=== PATIENT | female | born 1955 | race Caucasian/White ===

== ENCOUNTER 2016-12-14 17:21 | Emergency (ER) | payer MEDICARE ==
[~2016-12-14] VITALS: Ht 144.8 cm; Wt 54.5 kg
--- NOTE | 2016-12-14 17:25 | ED.REPORT ---
HPI-Trauma Minor / Fall Date of Service Dec 14, 2016 ED Provider: Curt Medellin MD The patient is a 61 year old female who was brought to the emergency department by EMS after she had a ground level fall prior to arrival. The patient was walking with her cane when her cane slipped out from under her and she fell forward hitting her face on the ground. She did not lose consciousness. She complains of a laceration to her lip and left shoulder pain. She is not on any blood thinners. She denies any other injuries or traumas. She denies fever, chills, abdominal pain, nausea, vomiting, diarrhea, chest pain or shortness of breath. Nursing Notes Stated Complaint: SHOULDER PAIN Nursing Notes Reviewed: Yes Allergies: Coded Allergies: [place] (Verified Allergy, Unknown, 12/14/16) Cephalosporins (Verified Allergy, Unknown, 12/14/16) Penicillins (Verified Allergy, Unknown, 12/14/16) aspirin (Verified Allergy, Unknown, 12/14/16) celery (Verified Allergy, Unknown, 12/14/16) clarithromycin (Verified Allergy, Unknown, 12/14/16) codeine (Verified Allergy, Unknown, 12/14/16) diphenhydramine HCl (Verified Allergy, Unknown, 12/14/16) General Time Seen by MD: 17:22 Chief Complaint Fall, Facial pain, Extremity pain Hx Obtained From: Patient, EMS Arrived By: Ambulance Onset Occurred: Just prior to arrival Symptom Duration: Since onset Caused by: Fall on ground Location: Face Shoulder left Quality: Painful Severity: Current: Moderate Severity: Maximum: Severe Recent Healthcare: No recent doctor visit, No recent hospitalization Similar Sx Previous: No Past Medical History Family History Noncontributory Smoking History Unknown if Ever Smoker Social History Other Social History: Good social support, , Local resident Ambulatory Status Independent Review of Systems Review of Systems Note: +lip laceration Constitutional: Denies: Chills, Fever Respiratory: Denies: Shortness of breath Musculoskeletal: Reports: Joint pain Neurologic: Denies: Change LOC, Headache, Syncope Complete sys rev & neg: except as marked. Cardiovascular: Denies: Chest pain GI: Denies: Abdominal pain, Diarrhea, Nausea, Vomiting Physical Exam Initial Vital Signs Vital Signs (First) Date Time Temp Pulse Resp B/P Pulse Ox O2 Delivery O2 Flow Rate FiO2 12/14/16 17:29 36.7 80 16 148/89 97 Room Air Initial VS: Reviewed Respiratory: Breath sounds normal, Clear to auscultation, No respiratory distress Cardiovascular: Regular rate & rhythm, Heart sounds normal, Intact distal pulses Abdomen / GI: Soft, Non-tender, No guarding, No rebound, No distention Skin: Warm, Dry, No cyanosis Neurologic: Alert, Oriented, Nonfocal Psychiatric: Mood/affect normal, Behavior normal, Normal thought content General/Constitutional: Awake, Alert, Cooperative Neck: Atraumatic, Supple, Full range of motion, No swelling, Non-tender, No midline vertebral tend Head / Eyes: Atraumatic, Normocephalic, PERRL, EOMI ENT: Airway patent There is dried blood about her upper lip. There is a superficial laceration about the internal aspect of her upper lip at midline that is about 5 mm. There is no evidence of dental trauma. Dentition is intact. Back: Atraumatic, Inspection NL, No midline vertebral tend, No paraspinal tenderness Upper Extremity / MS: Neurologic intact, Vascular intact Tenderness to her left anterior shoulder. No obvious deformity. No palpable bony abnormality. No evidence of dislocation. Sensation intact. Good radial pulses. Lower Extremity / Pelvis / MS: Neurologic intact, Vascular intact, Pelvis stable, Pelvis non-tender Female Genitourinary: Atraumatic Interpretation & Diagnostics X-Ray Interpretation Xray Interpretation: IMPRESSION: Moderate osteoarthritis a.c. joint, interstitial prominence over the lungs has been previously present and persists on the current study. Etiology is uncertain. Dictated by: Donaldo Moses M.D. on 12/14/2016 at 18:25 X-Ray Ordered: Shoulder left Interpretation / Wet Read by: Interpret - Radiologist Re-Eval/Medical Decision Med Decision/Clinical Course The patient is a 61 year old female who was brought to the emergency department by EMS after she had a ground level fall prior to arrival. The patient was walking with her cane when her cane slipped out from under her and she fell forward hitting her face on the ground. She did not lose consciousness. She complains of a laceration to her lip and left shoulder pain. She is not on any blood thinners. She denies any other injuries or traumas. She denies fever, chills, abdominal pain, nausea, vomiting, diarrhea, chest pain or shortness of breath. Here in the emergency department the patient is afebrile, hemodynamically stable and in no apparent distress. Full head to toe survey was performed and was notable for tenderness of the left shoulder without any deformity or swelling. She had good radial pulses in the affected extremity with full range of motion and intact sensation. Plain films of the left shoulder demonstrated no acute fractures or dislocation. Upon reassessment the patient had no signs of trauma to the chest, abdomen, pelvis, neck, face or head. I do not feel that any additional imaging studies or further workup is indicated. Patient reported that her pain was relatively mild and declined pain medication. She is provided with an ice pack. Thereafter, she was able to fully range her shoulder. I feel that she is appropriate for discharge. She will follow closely with her primary care doctor. She reports that she does not generally fall at home and was able to ambulate steadily and safely here in the ER. Prior to discharge follow-up and return precautions were reviewed in detail with the patient who verbalized understanding and agreement with the plan. The patient was discharged in stable condition. Source of Hx: Old records, EMS Re-Evaluation/Progress : Time of Eval: 18:57 Re-Evaluation/Progress Note: Discussed results, diagnosis, and plan for discharge. All questions were addressed. Counseled Regarding: Diagnosis, Lab results, Need for follow-up, When/why to return to ED Discharge & Departure Impression: Primary Impression: Fall from ground level Additional Impression: Left shoulder pain Chronicity: acute Qualified Code: M25.512 - Pain in left shoulder Disposition: Home Discharge Condition All VS Reviewed: Yes Condition: Stable Additional Instructions: dafne you for seeking care at the emergency room Our primary goal today in the ED was to evaluate you for any life-threatening conditions. Your evaluation was reassuring. We did not find any injuries of your shoulder. You should follow-up with your primary doctor in the next week. We recommend applying ice packs and taking Tylenol for your pain. You should return to the ED immediately if you develop worse pain, fevers, vomiting, cough, shortness of breath, chest pain, lightheadedness, weakness or any other concerning signs or symptoms. Thank you for letting us partake in your care today. Referrals: Vik Arellano MD (PCP) Scribe Attestation Portions of this note were transcribed by Ava Caldwell. I, Dr. Medellin personally performed the history, physical exam and medical decision-making; I reviewed and confirmed the accuracy of the information in the transcribed note. Signed by: Yadira Taylor, 12/14/2016 at 1905. copies to: Vik Arellano MD, Beck O MD Dec 14, 2016 17:25 Ava Caldwell Dec 14, 2016 17:28
[2016-12-14 17:29] VITALS: BP 148/89; PULSE 80; RESP 16; O2SAT 97
--- NOTE | 2016-12-14 18:28 | DRSVH ---
PROCEDURE: X-RAY LEFT SHOULDER, MINIMUM TWO VIEWS ([id number]) INDICATIONS: trauma TECHNIQUE: 3 views of the shoulder were acquired. COMPARISON: [facility], CR, XR CHEST 2VW, 06/01/2016, 15:50. FINDINGS: Bones: No fractures or dislocations. No suspicious bony lesions. Visualized ribs appear intact. M oderate osteoarthritis a.c. joint. Soft tissues: No suspicious soft tissue calcifications. Interstitial prominence again noted over th e lungs on the left, right chest is not included on this study.. IMPRESSION: Moderate osteoarthritis a.c. joint, interstitial prominence over the lungs has been prev iously present and persists on the current study. Etiology is uncertain. Dictated by: Donaldo Moses M.D. on 12/14/2016 at 18:25 Approved by: Donaldo Moses M.D. on 12/14/2016 at 18:26
[2016-12-14 18:55] VITALS: BP 124/78; PULSE 80; RESP 20; O2SAT 92
[2016-12-14 19:19] VITALS: BP 124/77; PULSE 74; RESP 16; O2SAT 97
== END 2016-12-14 19:20 | disposition home or self-care (01) ==
LOC: EDBD 17:21 → SED 17:21
DX: M25.512 Pain in left shoulder (principal); S01.511A Laceration without foreign body of lip, initial encounter; W01.198A Fall on same level from slipping, tripping and stumbling with subsequent striking against other object, initial encounter; Y93.01 Activity, walking, marching and hiking; Y92.009 Unspecified place in unspecified non-institutional (private) residence as the place of occurrence of the external cause; Y99.8 Other external cause status; Z88.0 Allergy status to penicillin; Z88.1 Allergy status to other antibiotic agents; Z88.5 Allergy status to narcotic agent; Z88.8 Allergy status to other drugs, medicaments and biological substances; Z91.018 Allergy to other foods

== ENCOUNTER 2017-03-03 23:00 | Inpatient (IN) | payer MEDICARE ==
[~2017-03-03] VITALS: Ht 144.8 cm; Wt 66.3 kg
[2017-03-03 23:09] VITALS: BP 115/68; PULSE 92; RESP 28; O2SAT 95
[2017-03-04] VITALS (10 sets, daily range): BP systolic 107–124; BP diastolic 59–88; PULSE 87–98; RESP 20–30; O2SAT 92–96
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
[2017-03-04 00:13] LABS: BASOPHILS % (AUTO) 0.4 % (0-3); EOSINOPHILS % (AUTO) 3.4 % (0-5); MONOCYTES % (AUTO) 5.7 % (4-12); Mean Corpuscular Hemoglobin 28.1 pg (27.0-35.0); NEUTROPHILS % (AUTO) 82.4 % (40-74)
[2017-03-04] MEDS ORDERED: Furosemide 10 mg/mL 4 mL Inj IVPUSH ONE (00:35)
[2017-03-04 00:51] LABS: Platelet Count 568 bil/L (150-400)
[2017-03-04 00:54] LABS: TROPONIN T 0.126 ug/L (0.0-0.011)
[2017-03-04 01:28] LABS: APPEARANCE,URINE CLEAR (CLEAR,HAZY); COLOR,URINE YELLOW (YELLOW); OCCULT BLOOD,URINE NEGATIVE (NEGATIVE); PH,URINE 6.5 (5.0-8.0); UROBILINOGEN,URINE NORMAL (NORMAL)
[2017-03-04] MEDS ORDERED: Heparin 5,000 Unit/mL Inj IVPUSH PRN (02:15)
[2017-03-04] MEDS ORDERED: Heparin 25K Unit/500mL 0.45 NS 25,000 UNIT in IV Premix 1 EACH IV SCH (02:15)
[2017-03-04] MEDS ORDERED: Alum-Mag Hydrox-Simeth 30 mL Suspension PO PRN ×2 (02:40→02:50)
[2017-03-04] MEDS ORDERED: Ondansetron 2 mg/mL 2 mL Inj IVPUSH PRN (02:40)
[2017-03-04] MEDS ORDERED: Polyethylene Glycol (PEG) 17 Gm Powder PO PRN (02:50)
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
[2017-03-04 03:33] LABS: Magnesium 1.6 mg/dL (1.6-2.6); Phosphorus 3.3 mg/dL (2.5-4.9)
[2017-03-04] MEDS ORDERED: PYR50 PO (04:00)
[2017-03-04] MEDS ORDERED: DEXTROSE 5% IV SCH (04:00)
[2017-03-04] MEDS ORDERED: DOXYCYCLINE IV SCH (04:00)
[2017-03-04] MEDS ORDERED: NIAC500T21 PO (04:00)
[2017-03-04] MEDS ORDERED: FOLI20CA PO (04:00)
[2017-03-04] MEDS: Ciprofloxacin 0.3% 5 mL Ophthalmic Solution BOTH_EYES SCH ×4 (04:45→20:46)
[2017-03-04 05:48] LABS: Unsaturated Iron Binding 139.7 ug/dL
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
--- NOTE | 2017-03-04 07:33 | DRSVH ---
PROCEDURE: CT BRAIN WITHOUT CONTRAST ([id number]) INDICATIONS: confusion, possible trauma TECHNIQUE: Noncontrast 4.5 mm thick angled axial sections acquired from the foramen magnum to the vertex, with c oronal reformats. COMPARISON: [facility], CT, CT CHEST WO CON, 07/12/2016, 10:23. FINDINGS: Image quality: Excellent. CSF spaces: Basal cisterns are patent. No extra-axial fluid collections. The ventricles are enlarge d. Brain: No midline shift. No intracranial masses or hemorrhage. Palma-white matter interface is norm al. Skull and face: Calvarium and visualized facial bones are intact, without suspicious lesions. The r ight parotid gland is lobulated and enlarged. Generalized cerebral and cerebellar atrophy. Sinuses: Visualized sinuses and mastoids are clear. IMPRESSION: 1. Ventricular enlargement greater than expected given the degree of generalized cerebral and cerebe llar atrophy. Please correlate for clinical evidence of normal pressure hydrocephalus. 2. The right parotid gland is partially visualized and is larger and more lobulated than expected. Pl ease correlate with clinical exam of the parotid. 3. There are no urgent discrepancies with the preliminary report. Dictated by: Lino Herring M.D. on 03/04/2017 at 7:28 Approved by: Lino Herring M.D. on 03/04/2017 at 7:32
[2017-03-04 08:01] LABS: BASOPHILS % (AUTO) 0.4 % (0-3); EOSINOPHILS % (AUTO) 3.4 % (0-5); MONOCYTES % (AUTO) 5.8 % (4-12); Mean Corpuscular Hemoglobin 27.8 pg (27.0-35.0); Mean Corpuscular Volume 89.2 fL (81-100); NEUTROPHILS % (AUTO) 81.2 % (40-74); Platelet Count 389 bil/L (150-400)
[2017-03-04] MEDS ORDERED: Furosemide 10 mg/mL 4 mL Inj IVPUSH SCH (08:30)
[2017-03-04] MEDS ORDERED: Heparin 5,000 Unit/mL Inj SUBQ SCH (08:30)
[2017-03-04] MEDS ORDERED: levoFLOXacin Inj 750 MG in IV Premix 1 EACH IV SCH (08:30)
[2017-03-04] MEDS: Sodium Chloride LOK Flush 10 mL Syringe IVFLUSH SCH ×3 (08:31→23:52)
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
--- NOTE | 2017-03-04 11:27 | PCM.PNMED ---
Subjective Date of Service Mar 04, 2017 Subjective Patient seen and examined today. She says she is always short of breath due to her history of asbestosis. Alert and oriented X 4. Vitals stable. Exam Vital Signs Vital Sign - Last Date Time Temp Pulse Resp B/P Pulse Ox O2 Delivery O2 Flow Rate FiO2 03/04/17 09:46 37.2 98 22 107/59 95 blow by 10.00 Exam General: Patient is alert and oriented 3, appearing quite anxious. She is labile in mood. HEENT: NC/AT, eyes are matted shut on the right and left, conjunctiva are clear bilaterally without erythema, PERRLA, EOMI, neck, soft supple, no adenopathy, no JVD, no masses, no thyromegaly, throat mucous membranes pink and moist. Pulmonary: Poor bilateral lung base to mid lung crackles, no use of accessory muscles of respiration, poor air movement, poor respiratory effort. Patient has history of asbestos exposure Cardiac: Regular rate and rhythm, no murmur, S1-S2 present, no rub, no click, no distant heart sounds, GI: Obese, Soft, nontender, nondistended, bowel sounds active, no rebound, no guarding, Genitourinary: No CVA tenderness, no suprapubic tenderness, no Gaming catheter, patient wearing absorbent diaper MSK: Muscle strength, 5 out of 5 upper extremity and symmetric bilaterally, pulses equal and symmetric upper extremity including radial and dorsalis pedis, bilateral lower extremity pitting edema involving the feet extending up to the distal knees bilaterally. Neurologic: Grossly neurologically intact, speaking in full sentences, no focal neurological signs. Skin: Bilateral lower extremity nails with severe onychomycoses, the anterior portion of the right leg with erythema. Bilateral legs with blotchy rash from the level of the mid thigh anteriorly extending distally. Psychiatric: Patient appears anxious and longoria. Lymph: no cervical or supraclavicular lymphadenopathy Lab and Diagnostics Result Diagram: 03/04/1745 03/04/17644 X-Rays, CTs and MRIs CT Head IMPRESSION: 1. Ventricular enlargement greater than expected given the degree of generalized cerebral and cerebellar atrophy. Please correlate for clinical evidence of normal pressure hydrocephalus. 2. The right parotid gland is partially visualized and is larger and more lobulated than expected. Please correlate with clinical exam of the parotid. 3. There are no urgent discrepancies with the preliminary report. Assessment & Plan This is 62-year-old female with history of anxiety, asbestosis exposure, and chronic lower extremity swelling who presented to the [facility] secondary to generalized weakness for the last 3-4 days. Patient had an elevated troponin of 0.126, leukocytosis of 16.1 with left shift, and symptoms and signs of CHF and physical exam and chest x-ray. Patient was admitted for broad spectrum antibiotic treatment, diuresis, and acute coronary syndrome rule out. # concern for CHF, echo normal - Patient was placed on a water pill by her PCP. She has not been compliant on her outpatient water pill given that it makes her void too frequently. Patient states that she underwent some sort of cardiac test with Dr. Juan Weaver As an outpatient several months ago. - proBNP 795.1, Albumin level 2.2 - Physical exam significant for bilateral crackles lung bases to mid lung velasquez (likely 2/2 interstitial lung disease), bilateral lower extremity pitting edema involving the feet to level of the distal knee (chronic venous stasis?) - In the ED: Patient received 40 mg of IV Lasix. - CXR showed: Increased fluid retention of the lungs - Continue to diurese with IV Lasix 40 mg daily. - Strict weights out of bed - ECHO - normal ejection fraction - cardiology consulted, recs: no signs of acute chf at this point, may need acs workup once patient more stable. - physical therapy consult # Interstitial lung disease - likely 2/2 to asbestos exposure - physical examination consistent with interstitial lung disease # Elevated troponin, Rule out coronary syndrome, present on admission, active - Troponin was elevated at 0.126 - Likely secondary to demand ischemia - Continuous cardiac monitoring with remote telemetry. - EKG showed: Sinus rhythm with a rate of 91, old anterior septal infarct, no ST segment elevation or depression, no T-wave abnormalities. - We will trend troponin and get echo as previously stated - No ASA as patient has an allergy, no beta mehran in the setting of acute CHF exacerbation - Heart healthy diet - Keep oxygen saturation greater than 94% - Lipid panel, hgbA1c - Ordered TTE complete as previously stated #Acute Leukocytosis, present on admission, active - Vital signs: Temperature 98.2, respiratory rate 28, blood pressure 115/68, a oxygen is 92% on room air. - WBCs 16.1, with left shift - Unsure, however swollen, lobulated and tender parotid gland could be the source of infection - CXR showed: Increased fluid retention of the lungs +/- interstitial lung disease - CT brain showed: Atrophy, age-related minor white matter changes. Prominent ventricles. Findings consistent with normal pressure hydrocephalus.Right parotid gland enlarged. - UA was negative for infection - We will initiate broad spectrum empiric antibiotic treatment with Levaquin - peripheral smear ordered - MRI neck to look for abscess in parotid gland, patient refused MRI - ID consulted, recs: hold antibiotics, Neuro consult for leg weakness and altered mental status, blood cx X2, quantiferon for tb exposure, MRSA swab # Bilateral eye infection, present on admission, active - Right eye appeared completely matted shut. Left eye partially matted shut, no conjunctival erythema - Cipro ophthalmic ointment bilaterally 3 times a day # Left Should Pain, status post falling out of bed, was on admission, active - The patient reported the ED physician that she has had left shoulder pain has persisted since she fell out of bed. - There was no upper extremity x-ray performed in the ED. And there was no further complaint of left shoulder pain during this physicians exam. #Anemia, normocytic hypochromic, chronicity unknown, present on admission, active - H/H8.7/27.6, MCV 89.0, MCH 28.1, MCHC 31.5. - Stool guaiac was negative - We will continue to monitor with serial CBC - Currently no apparent source for patient's anemia -Iron studies and ferritin # Elevated creatine patient with unknown baseline. Present admission, active - Creatinine 1.06 - Continue to monitor # Chronic venous stasis - edema in legs - wound care on consult, appreciate recs # Chronic back pain # History of asbestosis # Obesity # Anxiety Disposition: Admitted to in patient service with expected length of stay greater than 2 days, secondary to severity of presenting symptoms, treatment plan, complexity of clinical work up, and risk of adverse events. CODE STATUS: Full code PCP: Juan Selby DVT PE prophylaxis: SCD's Contact: VTE Prophylaxis: SCDs Resuscitation Status: CPR: Attempt Resuscitation Jose Carlos Corona MD Mar 04, 2017 11:27
--- NOTE | 2017-03-04 11:41 | DRSVH ---
PROCEDURE: X-RAY CHEST ONE VIEW, PORTABLE ([id number]) INDICATIONS: SHORT OF BREATH TECHNIQUE: One view of the chest was acquired. COMPARISON: [facility], CR, CHEST 2VW, 08/05/2010, 15:43. [facility], CR, XR CHEST 2VW, 05/14/2016, 12:34. [facility], CR, XR CHEST 2VW, 06/01/2016, 15:50. FINDINGS: Surgical changes and devices: None. Lungs and pleura: Diffuse, widespread bilateral pulmonary interstitial and air space opacities are p resent similar to prior examination. No pleural effusions or pneumothorax. Mediastinum: Mediastinal contours appear normal. Heart size is normal. Bones and chest wall: No suspicious bony lesions. Overlying soft tissues appear unremarkable. IMPRESSION: Diffuse, widespread bilateral interstitial and airspace opacities suggestive of pulmonary edema and/or diffuse bilateral inflammatory process likely superimposed upon chronic interstitial jacklyn ng disease. Dictated by: Jesus Rodríguez A Interpreted: Kathy Siegel MD on 03/04/2017 at 8:44 Approved by: Kathy Siegel M.D. on 03/04/2017 at 11:39
--- NOTE | 2017-03-04 14:26 | DRSVH ---
[facility] [address] [place] [address] Echocardiogram Report Name: JIMBO HAQUE LStudy Date : 03/04/2017 Height: 57 in Hospital Exam Location: [facility] Weight: 15 5 lb Gender: Female BSA: 1.6 m2 : 1955 Age: 62 yrs BP: 115/67 mmHg Ordering Physician: Alex Gray Performed By: Kemal Soto Referring Physician: BRENDA WEATHERS Interpretation Summary 1) Small left ventricular cavity with borderline left ventricular hypertophy and normal systolic function (EF 65-70%). 2) Small right ventricular cavity with normal function. 3) Age related calcificaiton of the aortic valve but no hemodynamically significant stenosis or reugurgitation are present. 4) No prior Echo available for comparison. Procedure: A two-dimensional transthoracic echocardiogram with color flow and Doppler was performed. The study quality was technically adequate. The apical views were difficult to obtain and are suboptimal in quality. There is no prior echocardiogram noted for this patient. The patient was in normal sinus rhythm during the exam. Left Ventricle: Left ventricular wall thickness is borderline increased. The left ventricular cavity is small. The ejection fraction is estimated to be 65-70%. Left ventricular systolic function is normal. Left ventricular wall motion is normal. Diastolic function could not be accurately assessed due to tachycardia. Right Ventricle: The right ventricular cavity is small. The right ventricular systolic function is normal. Atria: The left atrium grossly appears normal in size. Right atrium is small. The interatrial septum is intact with no evidence for an atrial septal defect. Mitral Valve: The mitral valve leaflets appear borderline thickened, but open well. There is no mitral regurgitation noted. Aortic Valve: The aortic valve is slightly calcified. The aortic valve is not well visualized. The aortic valve opens well. There is no hemodynamically significant valvular aortic stenosis. No aortic regurgitation is present. Tricuspid Valve: The tricuspid valve is not well visualized, but is grossly normal. Pulmonary artery pressures cannot be estimated because of the lack of a measurable TR jet velocity. Pulmonic Valve: The pulmonic valve leaflets are thin and pliable; valve motion is normal. There is no pulmonic valvular regurgitation. Great Vessels: The aortic root is normal size. The dimensions of the ascending aorta are normal. The pulmonary artery is normal size. The inferior vena cava was not well visualized. Pericardium/ Pleura There is no pericardial effusion. There is no pleural effusion. MMode/2D Measurements & Calculations LVIDd LVOT diam: 2.0 cm LV butt. diameter/BSA LV sys. diameter/BSA : 3.9 cm Ao root diam (cm/m^2): 2.4 (cm/m^2): 1.3 LVIDs : 2.1 cm asc Aorta Diam FS: 45.5 % EPSS Ao Arch Diam (Prox : 0.6cm Trans): 2.7 cm IVSd : 0.9cm LVPWd : 0.9cm Doppler Measurements & Calculations Ao V2 max: 195.7 cm/secMV E max manjit MV E/A: 0.84 PA V2 max Ao max P.3 mmHg : 70.5 cm/sec Med Peak E' Manjit : 71.6 cm/sec Ao mean P.0 mmHg MV A max manjit PA mean PG LVOT Max Manjit : 84.1 cm/sec E/E' med: 13.4 : 1.2 mmHg : 111.3 cm/sec Lat Peak E' Manjit PARISH(I,D): 1.7 cm E/E' lat: 20.3 sev ratio: 0.55 E/e' average MV dec time: 0.27 sec Ao V2 mean LV V1 max PG PA V2 mean : 133.8 cm/sec : 52.3 cm/sec Ao V2 VTI: 27.8 cm LV V1 VTI: 15.4 cmPA pr(Accel) : 35.4 mmHg PARISH(V,D): 1.7 cm2 PARISH indexed to BSA (cm^2/m^2): 1.0 Reading Physician:02:26 PM
[2017-03-04 14:55] LABS: Unsaturated Iron Binding 148.4 ug/dL
[2017-03-04 15:19] LABS: TROPONIN T 0.119 ug/L (0.0-0.011)
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
[2017-03-04] MEDS: Heparin 5,000 Unit/mL Inj SUBQ SCH ×2 (16:45→23:52)
--- NOTE | 2017-03-04 16:52 | NUR ---
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 said she's been [employer] ([employer]) for decades. Pt shared favorite bible verse and comment "i shouldn't have " pt declined to explore this comment further. prayer/scripture reading.
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
--- NOTE | 2017-03-04 18:26 | NUR ---
Anxiety and Activity Pt reporting anxiety, observed as emotionally labile. Declining anti-anxiety medications. Requiring reassurance and reinforcement for self care behaviors such as bed positions and reaching for objects on bedside table. Frequent turning and brief changing. Hips and knees stiff and unable to perform range of motion. Educated about contracture and the need for movement.
[2017-03-04] MEDS: LORazepam 0.5 mg Tablet PO PRN (19:00)
--- NOTE | 2017-03-04 19:15 | NUR ---
Wound orders received patient seen at bedside, presents with bilateral pitting edema at both lower extremities, no open wounds are noted. Wrapped with kerlix and coban for edema control will change dressings on Tuesday.
[2017-03-05 01:23] VITALS: BP 104/59; PULSE 88; RESP 18; O2SAT 89
[2017-03-05] MEDS: LORazepam 0.5 mg Tablet PO PRN ×2 (01:59→10:44)
--- NOTE | 2017-03-05 03:50 | NUR ---
NOC shift note Patient has been intermittently emotional through the night. Refused many attempts to reposition, despite education and encouragement. Patient reported back spasms, but declined medication - heat pad effective. PRN Ativan given once for anxiety - patient reported feeling "panicky" but unsure of reason why. has been at bedside, very attentive with rubbing legs and attempting to increase patient's comfort. Patient became tearful when went to lay on couch, "Don't leave me!". Vital signs have been stable, intentional rounding in place, reassurance provided.
--- NOTE | 2017-03-05 03:55 | NUR ---
Incomplete skin assessment/refusal of turns Patient refused to turn to side during physical assessment, unable to see backside. Many attempts to reposition patient as she reported being "very uncomfortable", but she refused. Patient is on a P500 bed. Repositioned as tolerated.
[2017-03-05 05:08] VITALS: BP 111/72; PULSE 76; RESP 18; O2SAT 90
[2017-03-05 05:54] VITALS: PULSE 84
[2017-03-05 06:57] LABS: BASOPHILS % (AUTO) 0.4 % (0-3); EOSINOPHILS % (AUTO) 2.9 % (0-5); MONOCYTES % (AUTO) 6.3 % (4-12); Mean Corpuscular Volume 89.1 fL (81-100); NEUTROPHILS % (AUTO) 80.7 % (40-74); Platelet Count 609 bil/L (150-400)
[2017-03-05] MEDS: Heparin 5,000 Unit/mL Inj SUBQ SCH ×2 (08:30→16:08)
[2017-03-05 08:50] VITALS: PULSE 93
[2017-03-05] MEDS ORDERED: levoFLOXacin 750 mg Tablet PO SCH (09:00)
[2017-03-05] MEDS: Sodium Chloride LOK Flush 10 mL Syringe IVFLUSH SCH ×2 (10:42→16:07)
[2017-03-05] MEDS: Ciprofloxacin 0.3% 5 mL Ophthalmic Solution BOTH_EYES SCH ×3 (10:44→20:08)
--- NOTE | 2017-03-05 11:00 | PCM.CHPMED ---
Subjective Date of Service: Mar 05, 2017 Provider requesting consult: Jose Carlos Corona MD Primary Physician: Admitting Physician: Renetta Yoo DO Primary Care Physician: Juan Weaver ND Attending Physician: Jose Carlos Corona MD Admit Status: From the Emergency Department Chief Complaint: Chief Complaint: Chronic Cough History of Present Illness: Pulmonary Consultation Note Patient Juana Grady is a 62-year-old female with past medical history of interstitial lung disease and likely cerebral palsy who was brought to the ED by EMS after falling out of bed at home. The patient states that she has had chronic leg problems secondary to possible cerebral palsy versus scoliosis however states that her legs have become progressively weaker over the last 2 months leaving her virtually bedbound. 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 Two months ago, she tearfully reports that "my shook me" and since then has been confined to bed. When asked why she can't get out of bed, she states " my legs won't work" She is a never smoker. She reports that her "lung collapsed" in 1990 while giving to her youngest child. She did not require any invasive procedures however and she was released from the hospital after only 4 days. She complains of a chronic cough which began more than 10 years ago when she was living in [place]. It had improved after she moved to [place] but then returned and has persisted for the last 6-7 years. It has recently become productive over the last 3 weeks with yellow phlegm she describes as pus. Recently , her PCP prescribed a course of oral antibiotics but the cough and sputum persist. She denies any recognized exposures to TB and has not traveled outside of [place] for over 5 years. Despite several chest imaging studies over the years including a CT from October 2015 which showed advanced interstitial lung disease, she denies any prior evaluations by Pulmonary or being told of any chronic lung disease. There is a record in her chart of a Pulmonary consult in 2008 which she does not recall. She repeatedly denies any dyspnea. She denies any significant occupational exposures. 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 She does recall a single episode while working in [place] around 1994 when the building where her office was located in was undergoing renovation and there was asbestosis encountered. She denies exposure to fumes, silica, dusts, solvents in the workplace. She does not use either a sauna, hot tub, or heated indoor pool. She lives in a single family home with a basement on [place]. It is heated with electric radiant heat and has no central cooling. She has cats and one dog. She had birds but they have been gone from the home for many years. Approximately 10 years ago, her found mold covering a basement wall in an area where there had been a water leak. This was cleaned and the leak repaired and there is no evidence of any mold growth currently. She denies recent fevers, sweats, rigors, shortness of breath, chest pain, dysuria, headache, constipation, hematuria, hematochezia, melena, and involuntary weight loss. She does report nausea with vomiting within 30 minutes of all meals. Review of Systems: Comprehensive review of systems was obtained and all are negative except for what is included in the history of present illness. 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 Bilateral heel cord lengthening procedure bilateral Orthopedic knee procedures for CP a "Romano" orthopedic procedure for cerebral palsy Home Medications Patient was started on a diuretic pill currently unknown Numerous supplements including B1,B3,B6,B9, B12, Vitamin D, Alpha lipoic acid, L -carnitine will bring in a list of supplements Allergies: Coded Allergies: Sciota (Verified Allergy, Unknown, 12/14/16) Cephalosporins (Verified Allergy, Unknown, 12/14/16) Penicillins (Verified Allergy, Unknown, 12/14/16) aspirin (Verified Allergy, Unknown, 12/14/16) celery (Verified Allergy, Unknown, 12/14/16) clarithromycin (Verified Allergy, Unknown, 12/14/16) codeine (Verified Allergy, Unknown, 12/14/16) diphenhydramine HCl (Verified Allergy, Unknown, 12/14/16) Family History Family History Mother had congestive heart failure and a heart attack in her 60s Father had congestive heart failure in his 60s, likely also had radiation and asbestos exposure Grandmother had a mild stroke in her 80s Social History Occupation: retired secretaryHx Alcohol Use: NoHx Substance Use: NoHx Tobacco Use: No Smoking Status: Never Smoker Living Arrangement: with Family (patient lives with her at home) Exam Vital Signs Vital Sign - Last Date Time Temp Pulse Resp B/P Pulse Ox O2 Delivery O2 Flow Rate FiO2 03/05/17 08:50 93 03/05/17 05:08 36.7 18 111/72 90 Room Air 03/04/17 17:30 Intake and Output 03/04/17 03/04/17 03/05/17 Cumulative From/Thru 15:00 23:00 07:00 03/03/17 23:09 - 03/05/17 05:50 Intake Total 580 ml 100 ml 680 ml Output Total 1932 ml 330 ml 2262 ml Balance -1352 ml -230 ml -1582 ml Intake Oral 380 ml 100 ml 480 ml IV Total 200 ml 200 ml Output Urine Total 1932 ml 330 ml 2262 ml # Voids 1 1 Additional Information: General: chronically ill appearing obese senior patient with cushingoid appearance is alert and oriented 3, appearing quite anxious and has conversational dyspnea only able to speak in 3 word bursts without. She is labile in mood often getting angry at her and crying. EYES: PERRLA, EOMI, anicteric sclera, pale noninjected conjunctiva HENT: NC/AT, mucous membranes pink and moist, without central cyanosis, oropharynx clear without cobblestoning mucosa Neck: Supple, trachea midline, anterior cervical adenopathy, no JVD, no masses, no thyromegaly Cardiac: Regular rate and rhythm, soft systolic ejection murmur noted at right upper sternal border and left lower sternal border, S1-S2 present, no rub, no click, no distant heart sounds Pulmonary: Bilateral lung base to mid lung crackles, some use of accessory muscles with inspiration, poor air movement, poor respiratory effort. GI: Obese, Soft, nontender, nondistended, bowel sounds active, no rebound, no guarding Genitourinary: No CVA tenderness, no suprapubic tenderness, no Gaming catheter, patient wearing absorbent diaper MSK: Muscle strength, 5 out of 5 upper extremity and symmetric bilaterally, Extremity: Noted clubbing of nails in bilateral hands: pulses equal bilaterally at radial, bilateral lower extremity pitting edema involving the feet extending up to the posterior thigh bilaterally. Neurologic: Nonfocal neurological exam Skin: Bilateral lower extremity nails with severe onychomycoses and feet with xerosis, new bandaging wrapping bilateral lower extremities from distal to the knee and past the ankle Psychiatric: Patient appears anxious and labile from angry to crying only directed at her Lymph: no cervical or supraclavicular lymphadenopathy Lab and Diagnostics Result Diagram: 03/05/17 0649 03/05/17 0649 X-Rays, CTs and MRIs CT BRAIN WITHOUT CONTRAST IMPRESSION: 1. Ventricular enlargement greater than expected given the degree of generalized cerebral and cerebellar atrophy. Please correlate for clinical evidence of normal pressure hydrocephalus. 2. The right parotid gland is partially visualized and is larger and more lobulated than expected. Please correlate with clinical exam of the parotid. 3. There are no urgent discrepancies with the preliminary report. Approved by: Lino Herring M.D. on 03/04/2017 at 7:32 X-RAY CHEST ONE VIEW, PORTABLE IMPRESSION: Diffuse, widespread bilateral interstitial and airspace opacities suggestive of pulmonary edema and/or diffuse bilateral inflammatory process likely superimposed upon chronic interstitial lung disease. Dictated by: Jesus Rodríguez RRA Interpreted: Kathy Siegel MD on 03/04/2017 at 8:44 Approved by: Kathy Siegel M.D. on 03/04/2017 at 11:39 Assessment & Plan Assessment Patient Juana Grady is a 62-year-old female with past medical history remarkable for chronic interstitial lung disease and likely cerebral palsy who was brought to the ED by EMS after a fall. # Chronic diffuse interstitial lung disease The available chest CT from 2016 shows very diffuse interstitial thickening which is centered on her airways and there is no honeycombing or traction bronchiectasis. The appearance is not consistent with asbestos related lung disease and in fact there is no radiographic evidence of asbestos exposure such as plaquing. We can narrow her differential diagnosis. She is not taking any medications associated with lung injury such as NSAIDs, nitrofurantoin or amiodarone. She has no history of a collagen vascular disorder to explain her ILD and no striking history of domestic or workplace exposures that would place her at risk for hypersensitivity pneumonitis. The lack of hilar adenopathy makes sarcoidosis unlikely but the parenchymal process seen in 2016 could be consistent with sarcoidosis. Finally, the pattern of disease on the CT is not suggestive of UIP but could be NSIP, chronic COVER SEAMER/BOOP. She is marginally hypoxemic at rest on room air and extremely debilitated and would not be a good candidate for surgical lung biopsy. A bronchoscopic biopsy could be considered at a later time if she stabilizes and remains without a clear diagnosis. REC Obtain and review ALL OTC medications the patient takes at home on a regular basis, Her will be bringing these to the hospital. CRP, KORINA, Rheumatoid factor Repeat Chest CT this admission Begin empiric oral steroids, 60 mg / day Sputum for culture, Nasopharyngeal swab for viral resp panel by PCR Routine VTE prophylaxis given her immobility Home O2 evaluation Timely discussion of Code Status with patient and her regarding her wishes in the event of a cardiopulmonary arrest should be held. She is quite frail and debilitated with marginal oxygenation in the setting of severe and progressive ILD. She has told me that she would NOT want intubation in the case of cardiac or respiratory arrest but is currently full code. Raj Diaz MD [facility] - Patient reports a chronic cough for the last several years and reports increased sputum production with change in phlegm color - Patient reports a history of chronic cough dating back to [place] in the - Patient was seen by system support specialist in 2008 following a pneumonia and had both a CT and a follow-up CT performed in 2008 2009, however has not seen a system support specialist in years - CT scan performed in 2016 shows significant advancement of interstitial lung disease from CT performed in 2009 - The patient reports an single event of notable asbestos exposure in 1987 while working in a office building where she subsequently moved her desk outside almost immediately during the renovation, and the patient's father reportedly had an exposure to asbestos in the [place] however patient states that the father was a cook and not a shipbuilder making significant secondary asbestos exposure unlikely. Asbestosis is less likely given exposure history and imaging studies which failed to reveal significant pleural calcifications with advanced interstitial lung disease. - Infectious disease has seen the patient does not believe the patient requires acute antibiotics for any possible infection at this time, and nasal PCR is negative for viral illness, however blood cultures and has ordered labs for possible TB - Differential diagnosis includes usual interstitial pneumonia/idiopathic pulmonary fibrosis, less likely hypersensitivity pneumonitis, sarcoidosis, or fungal infection - Repeat CT without contrast to compare to the CT from 2016 - Initiation of prednisone 60 mg daily - KORINA with reflex for possible auto-immune causes ordered - CRP and SED rate for inflammatory causes ordered - Monitor oxygen saturation and O2 requirements - Patient could use follow up with pulmonology as an outpatient, however patient would not necessarily be considered a ideal candidate for a lung biopsy at this time, consider follow up pulmonary function testing as an adult Thank you for this interesting consult. Problems: VTE Prophylaxis: Sub-Q Heparin (Unfractionated), SCDs Resuscitation Status: CPR: Attempt Resuscitation Oseas Mohan DO Mar 05, 2017 11:00 Raj Diaz MD Mar 05, 2017 17:31
--- NOTE | 2017-03-05 11:30 | PCM.PNMED ---
Subjective Date of Service Mar 05, 2017 Subjective Patient seen and examined. Not consistent with her story. Denies pain. Vitals stable. Patient is difficult as she is not very cooperative when it comes to management. Changes her story quite often, and has a labile mood. Today she refused PT/OT eval and CT. Exam Vital Signs Vital Sign - Last Date Time Temp Pulse Resp B/P Pulse Ox O2 Delivery O2 Flow Rate FiO2 03/05/17 08:50 93 03/05/17 05:08 36.7 18 111/72 90 Room Air 03/04/17 17:30 Intake and Output 03/04/17 03/04/17 03/05/17 Cumulative From/Thru 15:00 23:00 07:00 03/03/17 23:09 - 03/05/17 05:50 Intake Total 580 ml 100 ml 680 ml Output Total 1932 ml 330 ml 2262 ml Balance -1352 ml -230 ml -1582 ml Intake Oral 380 ml 100 ml 480 ml IV Total 200 ml 200 ml Output Urine Total 1932 ml 330 ml 2262 ml # Voids 1 1 Exam General: Patient is alert and oriented 3, appearing quite anxious. She is labile in mood. . Pulmonary: Poor bilateral lung base to mid lung crackles, no use of accessory muscles of respiration, poor air movement, poor respiratory effort. Cardiac: Regular rate and rhythm, no murmur, S1-S2 present, no rub, no click, no distant heart sounds. Lower extremity edema, now in wraps GI: Obese, Soft, nontender, nondistended, bowel sounds active, no rebound, no guarding, Genitourinary: No CVA tenderness, no suprapubic tenderness, no Gaming catheter, patient wearing absorbent diaper MSK: Muscle strength, 5 out of 5 upper extremity and symmetric bilaterally, pulses equal and symmetric upper extremity including radial and dorsalis pedis, bilateral lower extremity pitting edema involving the feet extending up to the distal knees bilaterally. Neurologic: Grossly neurologically intact, speaking in full sentences, no focal neurological signs. Skin: Bilateral lower extremity nails with severe onychomycoses, the anterior portion of the right leg with erythema. Bilateral legs with blotchy rash from the level of the mid thigh anteriorly extending distally. Psychiatric: Patient appears anxious and longoria. Lab and Diagnostics Result Diagram: 03/05/17 0649 03/05/17 0649 X-Rays, CTs and MRIs CT Head IMPRESSION: 1. Ventricular enlargement greater than expected given the degree of generalized cerebral and cerebellar atrophy. Please correlate for clinical evidence of normal pressure hydrocephalus. 2. The right parotid gland is partially visualized and is larger and more lobulated than expected. Please correlate with clinical exam of the parotid. 3. There are no urgent discrepancies with the preliminary report. Assessment & Plan This is 62-year-old female with history of anxiety, asbestosis exposure, and chronic lower extremity swelling who presented [facility] secondary to generalized weakness for the last 3-4 days. Patient had an elevated troponin of 0.126, leukocytosis of 16.1 with left shift, and symptoms and signs of CHF and physical exam and chest x-ray. Patient was admitted for broad spectrum antibiotic treatment, diuresis, and acute coronary syndrome rule out. # Cognitive impairment - patient not consistent with her story, her behavior is suggestive of some cognitive impairment - this could be related to normal pressure hydrocephalus, however could not asses her gait to come to a conclusion, will get neuro consult - will involve psych to assess underlying mental health issues # initial concern for CHF, echo normal - Patient was placed on a water pill by her PCP. She has not been compliant on her outpatient water pill given that it makes her void too frequently. Patient states that she underwent some sort of cardiac test with Dr. Juan Weaver As an outpatient several months ago. - proBNP 795.1, Albumin level 2.2 - Physical exam significant for bilateral crackles lung bases to mid lung velasquez (likely 2/2 interstitial lung disease), bilateral lower extremity pitting edema involving the feet to level of the distal knee (chronic venous stasis?) - In the ED: Patient received 40 mg of IV Lasix. - Strict weights out of bed - ECHO - normal ejection fraction - cardiology consulted, recs: no signs of acute chf at this point, may need acs workup once patient more stable. # Interstitial lung disease - likely 2/2 to asbestos exposure - physical examination consistent with interstitial lung disease - pulmonology consulted # Elevated troponin, Rule out coronary syndrome, present on admission, active - Troponin was elevated at 0.126 - Likely secondary to demand ischemia - Continuous cardiac monitoring with remote telemetry. - EKG showed: Sinus rhythm with a rate of 91, old anterior septal infarct, no ST segment elevation or depression, no T-wave abnormalities. - We will trend troponin and get echo as previously stated - No ASA as patient has an allergy, no beta mehran in the setting of acute CHF exacerbation - Heart healthy diet - Keep oxygen saturation greater than 94% - Lipid panel, hgbA1c - Ordered TTE complete as previously stated #Acute Leukocytosis, present on admission, resolving - Vital signs: Temperature 98.2, respiratory rate 28, blood pressure 115/68, a oxygen is 92% on room air. - WBCs 16.1 at admission, trending down - CXR showed:Diffuse, widespread bilateral interstitial and airspace opacities suggestive of pulmonary edema and/or diffuse bilateral inflammatory process - CT brain showed: Atrophy, age-related minor white matter changes. Prominent ventricles. Findings consistent with normal pressure hydrocephalus.Right parotid gland enlarged. - UA was negative for infection - was started on broad spectrum empiric antibiotic treatment with Levaquin, stopped as per ID recs, as no clear source of infection - peripheral smear ordered - MRI neck to look for abscess in parotid gland, patient refused MRI - MRSA negative - ID consulted, recs: hold antibiotics, Neuro consult for leg weakness and altered mental status, blood cx X2, quantiferon for tb exposure, CT pelvis ( patient refused) # Bilateral eye infection, present on admission, active - Cipro ophthalmic ointment bilaterally 3 times a day # Left Should Pain, status post falling out of bed, was on admission, active - The patient reported the ED physician that she has had left shoulder pain has persisted since she fell out of bed. - There was no upper extremity x-ray performed in the ED. And there was no further complaint of left shoulder pain during this physicians exam. #Anemia, normocytic hypochromic, chronicity unknown, present on admission, active - H/H8.7/27.6, MCV 89.0, MCH 28.1, MCHC 31.5. - Stool guaiac was negative - We will continue to monitor with serial CBC - Currently no apparent source for patient's anemia -Iron studies and ferritin, indicative for anemia of chronic disease, low tibc and low iron # Elevated creatine patient with unknown baseline. Present admission, active - Creatinine 1.06 > 1.19 - Continue to monitor, if keeps going up, may need fluids # Chronic venous stasis - edema in legs - wrapped by wound care - wound care on consult, appreciate recs # Chronic back pain # History of asbestosis # Obesity # Anxiety Disposition: pending improvement, PT/OT eval CODE STATUS: Full code PCP: Juan Selby DVT PE prophylaxis: SCD's Contact: VTE Prophylaxis: SCDs Resuscitation Status: CPR: Attempt Resuscitation Time spent 45 mins Jose Carlos Corona MD Mar 05, 2017 11:30
--- NOTE | 2017-03-05 14:01 | NUR ---
Social Work: Multidisciplinary Rounds / Continued d/c planning Data: Pt is on day 1 of hospitalization. EMR reviewed. Pt discussed in rounds. PT attempted to work with pt, pt declined. MD ordered Psych and Neuro consult, ORDER PACKER OR PACKAGER will continue to follow. Pt's spouse has Senior Resource guide and is looking into private pay caregiving. Assessment: Pt with caregiving at baseline. Plan: Pt will likely d/c home via POV with spouse, possible HH vs SNF need. ORDER PACKER OR PACKAGER will continue to follow for MD, PT, Psych, and Neuro consult recommendations. SONJA Buck
--- NOTE | 2017-03-05 15:06 | CONS ---
[address] [address] CONSULTATION REPORT PATIENT: JIMBO HAQUE : 1955 MR#: [id number] ADMIT: 03/04/2017 JOB ID: [id number] DATE OF SERVICE: 03/05/2017 IDENTIFICATION: The is a 62-year-old, white female. She lives with her at home. She has been bedridden for the past four months and suffers from COPD, congestive heart failure, coronary artery disease and diabetes mellitus. The couple moved from [place] to [place] approximately 12 years ago. REASON FOR ADMISSION: Client had fallen out of her bed and was taken to the ER for evaluation. She was admitted to the medicine floor for evaluation of generalized weakness, excess fluid buildup in legs. REASON FOR CONSULT: Client presenting with high anxiety and resistance to medical recommendations from the medical team. HISTORY OF PRESENT ILLNESS: I met with the patient and her for a 60-minute evaluation and reviewed course and records kept by [facility]. Client's main issue is chronic illness, including COPD, congestive heart failure, coronary artery disease and diabetes mellitus. She is having increased weakness and fluid retention. The client herself is a poor historian and tends to be very vague. She does have a history of depression and cognitive decline over the past six months. The staff was noticing that she tended to be quite labile and was such a poor historian that they requested a psychiatric evaluation to determine if there were any psychiatric issues that may be addressed. Client's medical conditions are chronic and have been with her for the past 20 years. She denies a history of psychiatric illness except for depression after the of her daughter. She has had no previous inpatient treatments and has not previously been on psychiatric medications. She used to work as an administrative coordinator and a property worker. Her worked for [employer] in [place] and [place] before retiring. At present, client denies suicidal ideation, plan or intent. She reported multiple symptoms of depression including poor sleep, interest, energy, and concentration. She was vague about the duration, intensity or frequency of the above symptoms. She denied psychiatric review of systems for mansoor, psychosis, trauma or substance abuse. She states all the above symptoms are made worse when she is not in her home environment and when she is not in control of her schedule. She is currently presenting with signs of emotional liability and difficulties with coping but no issues with impulse control, judgment, insight, or reality testing. PHYSICAL REVIEW OF SYSTEMS: Significant for constitution, feeling tired and exhausted all of the time. Cardiac: Client complains of poor circulation and edema. PAST MEDICAL HISTORY: Medications: Client denies being on previous medications. At present, she is on ciprofloxacin and heparin. ALLERGIES: 1. CEPHALOSPORINS. 2. PENICILLIN. 3. ASPIRIN 4. CODEINE. 5. BENADRYL. ILLNESSES: COPD, congestive heart failure, coronary artery disease, diabetes mellitus. FAMILY HISTORY: Significant for congestive artery disease in both mother and father. PAST PSYCHIATRIC HISTORY: Client states she had depression for a period after the of her daughter. PSYCHOSOCIAL HISTORY: Born and raised in [place]. She attended two years of college in [place] and went to [employer] in [place]. DRUG AND ALCOHOL: No smoking, drinking, or drugs. LETHALITY: No suicidal ideation. No previous suicide attempts. RELATIONSHIP HISTORY: Currently to her , one child. ZOROASTRIANISM: [employer]. LEGAL HISTORY: None. VITAL SIGNS: 111/72, pulse 76, respirations 18, afebrile. LABS: CBC: Leukocytosis on admission. Elevated troponin on admission. CT: Atrophy suggestive of normal-pressure hydrocephalus. Chest x-ray: Fluid retention. UA negative. MENTAL STATUS EXAM: Client dressed, lying in bed with hospital gown. She had good eye contact. Her behavior was somewhat lethargic and withdrawn. Attitude: Aloof and detached. Speech: Slow rate, low volume. Mood: Dysphoric. Affect: Congruent with normal intensity. Thought process: Client was actually able to relate a coherent history. She tends to be circumstantial in her thought but she did prairie band back to the point. Her process is generally concrete but otherwise logical and goal oriented. No signs of psychosis. Thought content: Multiple themes of anxiety and worry. She denied suicidal ideation, plan, or intent. She denied psychotic symptoms. Client alert and oriented to person, place, and date. Immediate, short, and long-term memory were intact. Attention and concentration were impaired but appeared appropriate. Insight and judgment was fair. Impulse control: Client is highly contained but rigid. Has a difficult time handling impulses of anger and fear. Reality testing intact. Competence to handle current stressors: Is currently being overwhelmed. IMPRESSION: The patient is a 62-year-old, white female, who has a very strong will and is used to being in control. Here on the inpatient medical unit, she does not have as much control and is having very high anxiety. She was refusing a CT scan due to feeling anxious and claustrophobic. She is very cautious about psychiatric medications, and although she is open to considering a trial of a low-dose SSRI and benzodiazepines, she wanted to think about this. I reviewed the relative risks, benefits and side effects of this approach with her, and she agreed to consider this. Client has a highly supportive but has been struggling with long-term issues of multiple medical complications that I believe are directly relating to her depression. DIAGNOSIS: Muldoon I. Generalized anxiety and depression secondary to general medical condition, congestive heart failure. Muldoon II. Defer. Muldoon III. Congestive heart failure, coronary artery disease, chronic obstructive pulmonary disease, diabetes mellitus. Muldoon IV. Moderate. Muldoon V. Current Global Assessment of Functioning equal to 40. PLAN: Would recommend offering client a trial of low-dose Prozac 10 mg daily and low-dose Valium 2.5 mg twice a day. I believe with this medication regimen, she may experience a relief in some of her depressive anxiety symptoms, and at that point, may be more willing to try a more therapeutic dose. I would recommend trying to give patient 24 hours in advance notice of any procedures and have her present for procedures, such as CTs. Would recommend client followup with outpatient services through [facility] or [facility] after discharge. Thank you for a very interesting consult. Please call if you require further psychiatric care.
[2017-03-05] MEDS: predniSONE 20 mg Tablet PO SCH (16:02)
[2017-03-05] MEDS: Ondansetron 2 mg/mL 2 mL Inj IVPUSH PRN (16:02)
[2017-03-05 16:21] VITALS: BP 115/69; PULSE 91; RESP 18; O2SAT 89
--- NOTE | 2017-03-05 16:30 | NUR ---
Discomfort/Refusal of Care Patient continues to report generalized pain, leg pain and generalized discomfort. Patient reported leg pain of 100/10. Patient becomes easily tearful and is very anxious. Refused AM refused morning medications for over 2 hours so she could "finish her breakfast first" because "I haven't eaten in 3 days". Will not allow nurse to administer eye drops, wants to do it herself-however in order to do so, she rubs the tip of the dropper across her lashes and eyelid until she is close, contaminating the dropper tip. "They said this was ok to do". Patient was too anxious for CT scan of chest. Patient refused to work with PT "I have to have my canes to sit on the side of the bed". Latter, patient requested nurse and to help her sit on the side of the bed. Addendum: 03/05/17 at 1842 by RICHARD TERESA RN Vomiting Patient had 3-4 episodes of a very small amount of emesis. Patient reporting she "had bad news from the doctor about resuscitation". "It upset me and then I threw up. Betyfrbrandin given, after a few minutes patient was able to eat snacks brought by her spouse.
[2017-03-05 20:55] VITALS: BP 111/69; PULSE 89; RESP 18; O2SAT 96
--- NOTE | 2017-03-05 22:57 | NUR ---
Discomfort Patient has been tearful off and on this evening. At about 8pm, reported, "I'm just so uncomfortable. I can't stand these things on my legs!" about kerlix/coban wrappings. Removed per patient request, and she's agreeable to have them replaced in a couple hours. Patient's put wrappings back on at about 2100, patient tearful through process. Patient crying again around 2200, insisted on laying on her stomach. Assisted onto stomach, but wanted to be on her back soon after. Patient then insisted on being placed in a wheelchair. Patient refused PT earlier today, refusing to assist with repositioning. Educated patient on her safety as well as staff's safety, that legs should not be dangling to keep the swelling down. Patient tearful, but repositioned in bed. at bedside, attentive. Frequent rounding in place. HS medications given as ordered, ineffective in decreasing anxiety.
[2017-03-06] MEDS: Sodium Chloride LOK Flush 10 mL Syringe IVFLUSH SCH ×3 (00:47→16:32)
[2017-03-06] MEDS: Heparin 5,000 Unit/mL Inj SUBQ SCH ×3 (00:48→16:32)
[2017-03-06 05:10] VITALS: BP 111/74; PULSE 82; RESP 18; O2SAT 90
[2017-03-06] MEDS: Benzocaine-Menthol Lozenge 2/Pkg PO PRN (05:41)
[2017-03-06] MEDS: Ciprofloxacin 0.3% 5 mL Ophthalmic Solution BOTH_EYES SCH ×3 (07:43→20:05)
[2017-03-06] MEDS: predniSONE 20 mg Tablet PO SCH (07:43)
[2017-03-06 08:36] LABS: BASOPHILS % (AUTO) 0.1 % (0-3); EOSINOPHILS % (AUTO) 0.1 % (0-5); MONOCYTES % (AUTO) 1.5 % (4-12); Mean Corpuscular Hemoglobin 27.6 pg (27.0-35.0); Mean Corpuscular Volume 88.5 fL (81-100); NEUTROPHILS % (AUTO) 88.4 % (40-74); Platelet Count 681 bil/L (150-400)
--- NOTE | 2017-03-06 09:24 | NUR ---
Evaluation completed. Please go to "Notes" then click on "Assessments and Notes" (bottom left corner of screen). Then select appropriate discipline tab on top of screen.
--- NOTE | 2017-03-06 10:56 | PCM.PNMED ---
Subjective Date of Service Mar 06, 2017 Subjective This morning patient states she is doing well, and feeling okay. Review of overnight events shows lowest SPO2 89% on room air. Continues to cough, no sputum production at this time, has been unable to provide a sample. Was seen by Dr. Reina, psychiatrist, who recommended patient start on Prozac and 2.5 mg Valium twice a day which she received this morning and was able to tolerate chest CT she previously declined yesterday. remains at bedside. Agreed to be seen by physical therapy. Exam Vital Signs Vital Sign - Last Date Time Temp Pulse Resp B/P Pulse Ox O2 Delivery O2 Flow Rate FiO2 03/06/17 05:10 37.0 82 18 111/74 90 Room Air 03/04/17 17:30 Intake and Output 03/05/17 03/05/17 03/06/17 Cumulative From/Thru 15:00 23:00 07:00 03/03/17 23:09 - 03/06/17 06:32 Intake Total 1236 ml 300 ml 2216 ml Output Total 2262 ml Balance 1236 ml 300 ml -46 ml Intake Oral 1236 ml 300 ml 2016 ml IV Total 200 ml Output Urine Total 2262 ml # Voids 2 4 7 # Bowel Movements 1 1 Exam General: Laying in bed, chronically ill-appearing, appears older than stated age HEENT: Normocephalic, atraumatic, EOMI grossly, antibiotic ointment present in patient's eyelashes, neck supple without lymphadenopathy, mucous membranes moist Cardiovascular: Regular rate and rhythm, no clicks murmurs rubs, peripheral pulses 2/4 equal bilaterally Pulmonary: Frequent cough, dry, coarse sounding lungs, unable to appreciate any wheezing or rhonchi. Abdominal: Soft to palpation, bowel sounds present 4, no hepatosplenomegaly. Negative rebound. Extremities: Bilateral lower extremity edema, hyperpigmentation to skin folds just proximal to ankles. Neuro: Diffusely weak, 2 out of 5 strength to bilateral lower extremities, MSK: Diffuse weakness, inconsistent strength exam, claims she cant lift her arms fully for strength test, but is able to reach her arm up to feed herself without hesitation. Derm: Macular papular lesions to bilateral proximal knees, 3-5 mm in diameter, nonscaly, nonbleeding, nonpurulent, no signs of excoriation. IVs and Medications Medications Reviewed: Medications were reviewed in detail Lab and Diagnostics Result Diagram: 03/06/17 0810 03/06/17 0810 X-Rays, CTs and MRIs Chest CT WO Contrast perfromed 03/05/17 IMPRESSION: 1. Limited study due to motion artifact. 2. Progression of interstitial lung disease compared to the prior studies with characterization limited on the current study due to motion artifact and technique. The findings are not characteristic of a UIP pattern and are suggestive of an NSIP pattern. Followup evaluation may be obtained with a high- resolution CT for further characterization. 3. Concentric esophageal wall thickening with mildly patulous appearance of the distal esophagus. Given the associated presence of interstitial lung disease, the findings raise the possibility of scleroderma. Correlation is recommended clinically. The differential includes a nonspecific esophagitis or esophageal mass. Consider correlation with endoscopy. Dictated by: Luis Felipe Carter M.D. on 03/06/2017 at 10:57 CT Head IMPRESSION: 1. Ventricular enlargement greater than expected given the degree of generalized cerebral and cerebellar atrophy. Please correlate for clinical evidence of normal pressure hydrocephalus. 2. The right parotid gland is partially visualized and is larger and more lobulated than expected. Please correlate with clinical exam of the parotid. 3. There are no urgent discrepancies with the preliminary report. Assessment & Plan Patient Juana Grady is a 62-year-old female with past medical history remarkable for chronic interstitial lung disease and reported cerebral palsy who was brought to the ED by EMS after a fall. Hospital Day 2 # Chronic diffuse interstitial lung disease, POA, Active. Repeat CT performed today showed progression of previously demonstrated lung disease, Differential narrowed to Atypical Sarcoidosis, Unrecognized collagen vascular disease, NSIP, Hypersensitivity pneumonitis, Chronic ASSISTANT MANAGER/BOOP. Not consistent with UIP, Chronic aspiration, Asbestosis, Recs: Continue daily oral steroids, 60 mg per day with intention to taper Nasopharyngeal swab for viral respiratory panel was Blandon negative MRSA nasal swab was negative Still awaiting Expectorated sputum sample for gram stain, culture and sensitivity. ESR and CRP are both elevated KORINA, RF, Quatiferon Gold study, Fungitel - Pending. Pt remains off systemic Antibiotics per ID, WBC and PCT have mildly increased, Blood Cultures Pending. Continue to monitor O2 requirements Patient could use follow up with pulmonology as an outpatient, however patient would not necessarily be considered a ideal candidate for a lung biopsy at this time, consider follow up pulmonary function testing as an adult Large left renal cyst demonstrated on CT, recommend focused renal ultrasound. She is not taking any medications associated with lung injury such as NSAIDs, nitrofurantoin or amiodarone. She has no history of a collagen vascular disorder to explain her ILD and no striking history of domestic or workplace exposures that would place her at risk for hypersensitivity pneumonitis. The lack of hilar adenopathy makes sarcoidosis unlikely but the parenchymal process seen in 2016 could be consistent with sarcoidosis. Finally, the pattern of disease on the CT is not suggestive of UIP but could be NSIP, chronic ASSISTANT MANAGER/BOOP. She is marginally hypoxemic at rest on room air and extremely debilitated and would not be a good candidate for surgical lung biopsy. A bronchoscopic biopsy could be considered at a later time if she stabilizes and remains without a clear diagnosis. VTE Prophylaxis: Sub-Q Heparin (Unfractionated), SCDs Resuscitation Status: CPR: Attempt Resuscitation AgricolaAntonio Dickson DO Mar 06, 2017 10:56 exacerbation - Heart healthy diet - Keep oxygen saturation greater than 94% - Lipid panel, hgbA1c - Ordered TTE complete as previously stated #Acute Leukocytosis, present on admission, resolving - Vital signs: Temperature 98.2, respiratory rate 28, blood pressure 115/68, a oxygen is 92% on room air. - WBCs 16.1 at admission, trending down - CXR showed:Diffuse, widespread bilateral interstitial and airspace opacities suggestive of pulmonary edema and/or diffuse bilateral inflammatory process - CT brain showed: Atrophy, age-related minor white matter changes. Prominent ventricles. Findings consistent with normal pressure hydrocephalus.Right parotid gland enlarged. - UA was negative for infection - was started on broad spectrum empiric antibiotic treatment with Levaquin, stopped as per ID recs, as no clear source of infection - peripheral smear ordered - MRI neck to look for abscess in parotid gland, patient refused MRI - MRSA negative - ID consulted, recs: hold antibiotics, Neuro consult for leg weakness and altered mental status, blood cx X2, quantiferon for tb exposure, CT pelvis ( patient refused) # Bilateral eye infection, present on admission, active - Cipro ophthalmic ointment bilaterally 3 times a day # Left Should Pain, status post falling out of bed, was on admission, active - The patient reported the ED physician that she has had left shoulder pain has persisted since she fell out of bed. - There was no upper extremity x-ray performed in the ED. And there was no further complaint of left shoulder pain during this physicians exam. #Anemia, normocytic hypochromic, chronicity unknown, present on admission, active - H/H8.7/27.6, MCV 89.0, MCH 28.1, MCHC 31.5. - Stool guaiac was negative - We will continue to monitor with serial CBC - Currently no apparent source for patient's anemia -Iron studies and ferritin, indicative for anemia of chronic disease, low tibc and low iron # Elevated creatine patient with unknown baseline. Present admission, active - Creatinine 1.06 > 1.19 - Continue to monitor, if keeps going up, may need fluids # Chronic venous stasis - edema in legs - wrapped by wound care - wound care on consult, appreciate recs # Chronic back pain # History of asbestosis # Obesity # Anxiety Disposition: pending improvement, PT/OT eval CODE STATUS: Full code PCP: Juan Selby DVT PE prophylaxis: SCD's Contact: VTE Prophylaxis: Sub-Q Heparin (Unfractionated), SCDs Resuscitation Status: CPR: Attempt Resuscitation AgricolaAntonio Dickson DO Mar 06, 2017 10:56
--- NOTE | 2017-03-06 11:08 | DRSVH ---
PROCEDURE: CT CHEST WITHOUT CONTRAST ([id number]) INDICATIONS: Dyspnea, interstitial lung disease TECHNIQUE: Noncontrast 5 mm thick sections acquired from the pulmonary apices to the posterior costophrenic angl es. 7 mm thick coronal and sagittal MIP reformats were then acquired. For radiation dose reduction, the following was used: automated exposure control, adjustment of mA and/or kV according to patient size. COMPARISON: [facility] , CT, CHEST W/O CONTRAST, 01/07/2010, 15:20. [facility], CT, CT CHEST WO CON, 07/12/2016, 10:23. FINDINGS: Image quality: There is motion artifact limiting evaluation Lungs and pleura: Evaluation of the lungs is limited due to motion artifact. There is bilateral sep mauro thickening and bronchial wall thickening redemonstrated as well as reticular opacities. No defin ite honeycombing. Findings are again compatible with interstitial lung disease with progression comp ared to the prior studies. There is involvement of the upper and lower lobes without a definite basi lar predominance. The trachea and central airways appear patent. Mediastinum: Heart size is at the upper limits of normal. No pericardial effusion. No mediastinal adenopathy by size criteria. Thoracic aorta and central pulmonary arteries are normal in size. Ther e is concentric esophageal wall thickening most prominent distally with a moderate pectus appearance of the distal esophagus and a small hiatal hernia. Bones and chest wall: No suspicious bony lesions. No vertebral body compression fractures. No axil cole or supraclavicular adenopathy by size criteria. Thyroid gland is partially visualized. Abdomen: Visualized upper abdomen demonstrates a partially visualized left renal cyst. IMPRESSION: 1. Limited study due to motion artifact. 2. Progression of interstitial lung disease compared to the prior studies with characterization limi yefri on the current study due to motion artifact and technique. The findings are not characteristic o f a UIP pattern and are suggestive of an NSIP pattern. Followup evaluation may be obtained with a hi gh-resolution CT for further characterization. 3. Concentric esophageal wall thickening with mildly patulous appearance of the distal esophagus. G iven the associated presence of interstitial lung disease, the findings raise the possibility of scle roderma. Correlation is recommended clinically. The differential includes a nonspecific esophagitis or esophageal mass. Consider correlation with endoscopy. Dictated by: Luis Felipe Carter M.D. on 03/06/2017 at 10:57 Approved by: Luis Felipe Carter M.D. on 03/06/2017 at 11:06
[2017-03-06 12:46] VITALS: BP 106/68; PULSE 85; RESP 18; O2SAT 87
--- NOTE | 2017-03-06 13:17 | NUR ---
O2, emotional distress SpO2 in high 80s to low 90s while on room air. Explained to pt. that she needs O2 supplement. Pt. declined O2 by nasal cannula, oxymask, or simple face mask. She stated, "I tried, they made me very anxious." Will continue to monitor pt. respiratory function and needs. Pt. reported, "I don't feel good." related to "I was told by the doctor that I don't have long to live." Pt. declined pricing clerk for spiritual and emotional distress. She stated, "I am a women of [employer] efraín, I talk to God. I'm fine."
--- NOTE | 2017-03-06 15:25 | PCM.PNMED ---
Subjective Date of Service Mar 06, 2017 Subjective Patient seen and examined today. No change. Vitals stable. Exam Vital Signs Vital Sign - Last Date Time Temp Pulse Resp B/P Pulse Ox O2 Delivery O2 Flow Rate FiO2 03/06/17 12:46 36.3 85 18 106/68 87 Room Air 03/04/17 17:30 Intake and Output 03/05/17 03/05/17 03/06/17 Cumulative From/Thru 15:00 23:00 07:00 03/03/17 23:09 - 03/06/17 06:32 Intake Total 1236 ml 300 ml 2216 ml Output Total 2262 ml Balance 1236 ml 300 ml -46 ml Intake Oral 1236 ml 300 ml 2016 ml IV Total 200 ml Output Urine Total 2262 ml # Voids 2 4 7 # Bowel Movements 1 1 Exam General: Laying in bed, chronically ill-appearing, appears older than stated age HEENT: Normocephalic, atraumatic, EOMI grossly, antibiotic ointment present in patient's eyelashes, neck supple without lymphadenopathy, mucous membranes moist Cardiovascular: Regular rate and rhythm, no clicks murmurs rubs, peripheral pulses 2/4 equal bilaterally Pulmonary: Frequent cough, dry, coarse sounding lungs, unable to appreciate any wheezing or rhonchi. Abdominal: Soft to palpation, bowel sounds present 4, no hepatosplenomegaly. Negative rebound. Extremities: Bilateral lower extremity edema, hyperpigmentation to skin folds just proximal to ankles. Neuro: Diffusely weak, 2 out of 5 strength to bilateral lower extremities, MSK: Diffuse weakness, inconsistent strength exam, claims she cant lift her arms fully for strength test, but is able to reach her arm up to feed herself without hesitation. Derm: Macular papular lesions to bilateral proximal knees, 3-5 mm in diameter, nonscaly, nonbleeding, nonpurulent, no signs of excoriation. Lab and Diagnostics Result Diagram: 03/06/17 0810 03/06/17 0810 X-Rays, CTs and MRIs Chest CT WO Contrast perfromed 03/05/17 IMPRESSION: 1. Limited study due to motion artifact. 2. Progression of interstitial lung disease compared to the prior studies with characterization limited on the current study due to motion artifact and technique. The findings are not characteristic of a UIP pattern and are suggestive of an NSIP pattern. Followup evaluation may be obtained with a high- resolution CT for further characterization. 3. Concentric esophageal wall thickening with mildly patulous appearance of the distal esophagus. Given the associated presence of interstitial lung disease, the findings raise the possibility of scleroderma. Correlation is recommended clinically. The differential includes a nonspecific esophagitis or esophageal mass. Consider correlation with endoscopy. Dictated by: Luis Felipe Carter M.D. on 03/06/2017 at 10:57 CT Head IMPRESSION: 1. Ventricular enlargement greater than expected given the degree of generalized cerebral and cerebellar atrophy. Please correlate for clinical evidence of normal pressure hydrocephalus. 2. The right parotid gland is partially visualized and is larger and more lobulated than expected. Please correlate with clinical exam of the parotid. 3. There are no urgent discrepancies with the preliminary report. Assessment & Plan This is 62-year-old female with history of anxiety, asbestosis exposure, and chronic lower extremity swelling who presented to the [facility] secondary to generalized weakness for the last 3-4 days. Patient had an elevated troponin of 0.126, leukocytosis of 16.1 with left shift, and symptoms and signs of CHF and physical exam and chest x-ray. Patient was admitted for broad spectrum antibiotic treatment, diuresis, and acute coronary syndrome rule out. # Anxiety +/- cognitive impairment - patient not consistent with her story, her behavior is suggestive of some cognitive impairment - this could be related to normal pressure hydrocephalus, however could not asses her gait to come to a conclusion, will get neuro consult - Psych saw the patient, rec: antianxiety meds with prozac 10mg daily, valium 2.5 BID, warning patient ahead of time before the test # initial concern for CHF, echo normal - Patient was placed on a water pill by her PCP. She has not been compliant on her outpatient water pill given that it makes her void too frequently. Patient states that she underwent some sort of cardiac test with Dr. Juan Weaver As an outpatient several months ago. - proBNP 795.1, Albumin level 2.2 - Physical exam significant for bilateral crackles lung bases to mid lung velasquez (likely 2/2 interstitial lung disease), bilateral lower extremity pitting edema involving the feet to level of the distal knee (chronic venous stasis?) - In the ED: Patient received 40 mg of IV Lasix. - Strict weights out of bed - ECHO - normal ejection fraction - cardiology consulted, recs: no signs of acute chf at this point, may need acs workup once patient more stable. #Hypoxemia 2/2 underlying lung pathology - Chronic ILD , unknown source - repeat CT - worsening ILD from before, in NSIP pattern, concerns for sarcoidosis, esophageal thickening ? - pulmonology consulted, appreciate recs : Continue daily oral steroids, 60 mg per day with intention to taper KORINA, RF, Quatiferon Gold study, Fungitel - Pending. outpatient pfts awaiting sputum cultures #Esophageal thickening - as mentioned in CT - will need endoscopy once patient stabilizes # Elevated troponin, Rule out coronary syndrome, present on admission, resolved - Troponin was elevated at 0.126 - Likely secondary to demand ischemia - Continuous cardiac monitoring with remote telemetry. - EKG showed: Sinus rhythm with a rate of 91, old anterior septal infarct, no ST segment elevation or depression, no T-wave abnormalities. - Heart healthy diet - Keep oxygen saturation greater than 94% - Lipid panel, hgbA1c - Ordered TTE complete as previously stated #Acute Leukocytosis, present on admission, active - Vital signs: Temperature 98.2, respiratory rate 28, blood pressure 115/68, a oxygen is 92% on room air at admission - WBCs 16.1 at admission, trending down intially, trended up again today, could be assoicated with prednisone vs underlying infection getting worse as the antitbiotics were stopped as per ID recs - CXR showed:Diffuse, widespread bilateral interstitial and airspace opacities suggestive of pulmonary edema and/or diffuse bilateral inflammatory process - CT brain showed: Atrophy, age-related minor white matter changes. Prominent ventricles. Findings consistent with normal pressure hydrocephalus.Right parotid gland enlarged. - UA was negative for infection - was started on broad spectrum empiric antibiotic treatment with Levaquin, stopped as per ID recs, as no clear source of infection - peripheral smear ordered - MRI neck to look for abscess in parotid gland, patient refused MRI - MRSA negative - ID consulted, recs: hold antibiotics, Neuro consult for leg weakness and altered mental status, blood cx X2, quantiferon for tb exposure, CT pelvis ( patient refused) # Bilateral eye infection, present on admission, active - Cipro ophthalmic ointment bilaterally 3 times a day # Left Should Pain, status post falling out of bed, was on admission, active - The patient reported the ED physician that she has had left shoulder pain has persisted since she fell out of bed. - There was no upper extremity x-ray performed in the ED. And there was no further complaint of left shoulder pain during this physicians exam. #Anemia, normocytic hypochromic, chronicity unknown, present on admission, active - H/H8.7/27.6, MCV 89.0, MCH 28.1, MCHC 31.5. - Stool guaiac was negative - We will continue to monitor with serial CBC - Currently no apparent source for patient's anemia -Iron studies and ferritin, indicative for anemia of chronic disease, low tibc and low iron # Elevated creatine patient with unknown baseline. Present admission, active - Creatinine 1.06 > 1.19> 1.14 - Continue to monitor # Chronic venous stasis - edema in legs - wrapped by wound care - wound care on consult, appreciate recs # Chronic back pain # History of asbestosis # Obesity # Anxiety Disposition: pending improvement, PT/OT eval CODE STATUS: Full code PCP: Juan Selby DVT PE prophylaxis: SCD's Contact: VTE Prophylaxis: Sub-Q Heparin (Unfractionated), SCDs Resuscitation Status: CPR: Attempt Resuscitation Time spent 45 mins Jose Carlos Corona MD Mar 06, 2017 15:25
--- NOTE | 2017-03-06 16:15 | NUR ---
Social Work: Continued d/c planning / Multidisciplinary Rounds Data: Pt is on day 2 of hospitalization. EMR reviewed. Pt discussed in rounds. MD states pt possibly ready to d/c tomorrow. PT recommending SNF at this time, [facility] CONSULTANT awaiting likely MD order to arrange this. Psych recommending oupt mental health counseling, [facility]IDATION CONSULTANT awaiting likely MD order to complete this. Assessment: Pt with caregiving at baseline. Plan: Pt will likely d/c to SNF, VALIDATION CONSULTANT will follow up for SNF choice and refer after MD orders. VALIDATION CONSULTANT will set up outpt mental health counseling with either [facility] or [place] [facility] after MD orders. VALIDATION CONSULTANT will continue to follow. SONJA Buck
[2017-03-06] MEDS: Ondansetron 2 mg/mL 2 mL Inj IVPUSH PRN (17:53)
[2017-03-06 19:55] VITALS: BP 137/70; PULSE 88; RESP 22; O2SAT 90
--- NOTE | 2017-03-06 21:26 | DRSVH ---
PROCEDURE: US RENAL SONOGRAM INDICATIONS: Cyst on CT TECHNIQUE: Real-time scanning was performed of the kidneys and bladder, with image documentation. COMPARISON: [facility], CT, CT CHEST WO CON, 03/06/2017, 8:50. FINDINGS: Kidneys: Right kidney measures 9.3 cm long; left kidney measures 11.0 cm long. Right renal cortical thickness is 1.1 cm; left renal cortical thickness is 1.5 cm. Renal cortical echotexture is normal. No hydronephrosis. There is a thin-walled anechoic exophytic cyst extending from the superior pole of the left kidney measuring up to 3.9 x 5.0 x 4.0 cm. No internal vascularity on color Doppler int errogation. Bladder: Pre-void bladder volume is 111 mL. Patient unable to void due to incontinence. No definit e intraluminal masses or stones. Miscellaneous: No free pelvic fluid. IMPRESSION: 1. Simple cyst demonstrated in the left kidney. Dictated by: Luis Felipe Carter M.D. on 03/06/2017 at 21:17 Approved by: Luis Felipe Carter M.D. on 03/06/2017 at 21:24
[2017-03-07] MEDS: Benzocaine-Menthol Lozenge 2/Pkg PO PRN ×2 (00:12→21:14)
[2017-03-07] MEDS: Heparin 5,000 Unit/mL Inj SUBQ SCH ×3 (00:12→17:57)
[2017-03-07] MEDS: Sodium Chloride LOK Flush 10 mL Syringe IVFLUSH SCH ×3 (00:12→17:57)
[2017-03-07 04:51] VITALS: BP 115/72; PULSE 80; RESP 20; O2SAT 88
[2017-03-07 05:43] LABS: Mean Corpuscular Hemoglobin 27.8 pg (27.0-35.0); Mean Corpuscular Volume 88.5 fL (81-100)
--- NOTE | 2017-03-07 06:00 | NUR ---
Meds Pt refused HS Valium and APAP. Risks and benefits explained. She verbalizes understanding.
[2017-03-07 08:55] VITALS: BP 126/75; PULSE 85; RESP 20; O2SAT 95
[2017-03-07] MEDS: Ciprofloxacin 0.3% 5 mL Ophthalmic Solution BOTH_EYES SCH ×3 (08:57→21:15)
[2017-03-07] MEDS: predniSONE 20 mg Tablet PO SCH (08:58)
[2017-03-07 09:16] LABS: MONOCYTES % (AUTO) 5 % (4-12); NEUTROPHILS % (AUTO) 82 % (40-74)
[2017-03-07 09:17] LABS: BASOPHILS % (AUTO) 0 % (0-3); EOSINOPHILS % (AUTO) 0 % (0-5)
[2017-03-07 13:06] VITALS: BP 131/78; PULSE 85; RESP 20; O2SAT 95
--- NOTE | 2017-03-07 13:42 | NUR ---
Social Work-readiness for discharge/ multidisciplinary rounds: Data:EMR Reviewed. Pt is on day 3 of hospitalization for acute CHF per H&P. Pt is not medically stable anticipate tomorrow. PT has seen pt and is recommending SNF placement. order received for SNF placement. SW met with pt and to discuss, SNF choice list provided. Pt and agreeable and would like a referral to [facility]. SW faxed facesheet and PASRR and provided access in [employer]. APS report had been made and worker assigned to the case is Kemal Coronel [phone]. Paperwork in the chart. SW will continue to follow. Assessment:Pt who would benefit from SNF. Plan: Referral has been sent to [facility]. Paperwork in the chart. SW will continue to follow. SONJA Porter
--- NOTE | 2017-03-07 14:39 | PCM.PNMED ---
Subjective Date of Service Mar 07, 2017 Subjective Patient is seen and examined. She says that she does not like it that people are bringing up SNF placement for rehabilitation. is supportive says that he was benefited from SNIF rehabilitation at [facility] in the past, but we will do whatever his wants. Patient is saying that she will exercise at home. She also blames her for building a ramp for his own recovery as she feels the ramp made her legs weaker. She says she asked the nurse to increase her oxygen as it was too low this morning and she thought it would help. She is coughing a bit but other than that she has no other complaints. Exam Vital Signs Vital Sign - Last Date Time Temp Pulse Resp B/P Pulse Ox O2 Delivery O2 Flow Rate FiO2 03/07/17 04:51 36.7 80 20 115/72 88 Room Air 03/04/17 17:30 Intake and Output 03/06/17 03/06/17 03/07/17 Cumulative From/Thru 15:00 23:00 07:00 03/03/17 23:09 - 03/06/17 18:29 Intake Total 817 ml 3033 ml Output Total 2262 ml Balance 817 ml 771 ml Intake Oral 817 ml 2833 ml IV Total 200 ml Output Urine Total 2262 ml # Voids 2 9 # Bowel Movements 0 1 Exam Gen.: Sitting up in bed. pale HEENT: Normocephalic, atraumatic Heart: Regular rate and rhythm no S3-S4 murmurs Lungs: Crackles fine posteriorly in the lower lobes, no wheezing Abdomen: Nontender nondistended normal bowel sounds Extremities: Negative for edema Vascular: Palpable pedal pulses Musculoskeletal: Patient refuses to lift her lower extremities again is to gravity. She is able to do resistance testing and over the feet Psych: Positive for anxiety Neuro: She was perseverating a lot, short-term memory loss IVs and Medications Medications Reviewed: Medications were reviewed in detail Lab and Diagnostics Laboratory Tests Test 03/07/17 05:05 White Blood Count 19.8th/mm3 (3.8-10.1) Red Blood Count 2.88mil/mm3 (3.90-5.20) Hemoglobin 8.0g/dL (12.0-15.6) Hematocrit 25.5% (35.0-46.0) Mean Corpuscular Volume 88.5fL (81-100) Mean Corpuscular Hemoglobin 27.8pg (27.0-35.0) Mean Corpuscular Hemoglobin Concent 31.4% (32.0-37.0) Red Cell Distribution Width 15.8% (12.3-15.4) Platelet Count 741bil/L (150-400) Neutrophils (%) (Auto) 82% (40-74) Lymphocytes (%) (Auto) 8% (14-46) Monocytes (%) (Auto) 5% (4-12) Eosinophils (%) (Auto) 0% (0-5) Basophils (%) (Auto) 0% (0-3) Band Neutrophils % 4% (1-5) Metamyelocytes % 1% (0-0) Sodium Level 135mEq/L (134-144) Potassium Level 4.1mEq/L (3.5-5.2) Chloride Level 95mEq/L (97-108) Carbon Dioxide Level 28mmol/L (18-29) Blood Urea Nitrogen 14mg/dL (8-27) Creatinine 1.19mg/dL (0.57-1.00) Estimat Glomerular Filtration Rate 65mL/min (>59) Glucose Level 120mg/dL (60-99) Calcium Level 9.0mg/dL (8.5-10.1) Microbiology 03/04/17 Blood Culture - Preliminary, Resulted No growth at 2 days; culture examined... 03/04/17 Adenovirus DNA (PCR) - Final, Complete Not Detected 03/04/17 Coronavirus 229E PCR - Final, Complete Not Detected 03/04/17 Coronavirus HKU1 PCR - Final, Complete Not Detected 03/04/17 Coronavirus NL63 PCR - Final, Complete Not Detected 03/04/17 Coronavirus OC43 PCR - Final, Complete Not Detected 03/04/17 Influenza Type A (PCR) - Final, Complete Not Detected 03/04/17 Influenza Type B (PCR) - Final, Complete Not Detected 03/04/17 Human Metapneumovirus (PCR) (ERMA) - Final, Complete Not Detected 03/04/17 Rhinovirus (PCR)(ERMA) - Final, Complete Not Detected 03/04/17 Parainfluenza Virus Type 1 (PCR) - Final, Complete Not Detected 03/04/17 Parainfluenza Virus Type 2 (PCR) - Final, Complete Not Detected 03/04/17 Parainfluenza Virus Type 3 (PCR) - Final, Complete Not Detected 03/04/17 Parainfluenza Virus Type 4 (NAAT) - Final, Complete Not Detected 03/04/17 Respiratory Syncytial Virus (PCR)IA - Final, Complete Not Detected 03/04/17 Chlamydia pneumoniae (PCR) - Final, Complete Not Detected 03/04/17 Mycoplasma pneumoniae DNA Detection - Final, Complete Result Diagram: 03/06/17 0810 03/06/17 0810 X-Rays, CTs and MRIs Chest CT WO Contrast perfromed 03/05/17 IMPRESSION: 1. Limited study due to motion artifact. 2. Progression of interstitial lung disease compared to the prior studies with characterization limited on the current study due to motion artifact and technique. The findings are not characteristic of a UIP pattern and are suggestive of an NSIP pattern. Followup evaluation may be obtained with a high- resolution CT for further characterization. 3. Concentric esophageal wall thickening with mildly patulous appearance of the distal esophagus. Given the associated presence of interstitial lung disease, the findings raise the possibility of scleroderma. Correlation is recommended clinically. The differential includes a nonspecific esophagitis or esophageal mass. Consider correlation with endoscopy. Dictated by: Luis Felipe Carter M.D. on 03/06/2017 at 10:57 CT Head IMPRESSION: 1. Ventricular enlargement greater than expected given the degree of generalized cerebral and cerebellar atrophy. Please correlate for clinical evidence of normal pressure hydrocephalus. 2. The right parotid gland is partially visualized and is larger and more lobulated than expected. Please correlate with clinical exam of the parotid. 3. There are no urgent discrepancies with the preliminary report. Assessment & Plan This is 62-year-old female with history of anxiety, asbestosis exposure, and chronic lower extremity swelling who presented to the [facility] secondary to generalized weakness for the last 3-4 days. Patient had an elevated troponin of 0.126, leukocytosis of 16.1 with left shift, and symptoms and signs of CHF and physical exam and chest x-ray. Patient was admitted for broad spectrum antibiotic treatment, diuresis, and acute coronary syndrome rule out. #Hypoxemia due to worsening interstitial lung disease, improving - Chronic ILD , unknown source - repeat CT - worsening ILD from before, in NSIP pattern, concerns for sarcoidosis, esophageal thickening ? - pulmonology consulted, appreciate recs : -- Discussed case with Dr. abad from pulmonology, he does not believe prednisone is called for at this time. Recommends to taper. Cut the dose to 40 mg. Plan to take her to 20 for 2 days 10mg 2 days and then stop -- KORINA(negative), RF, Quatiferon Gold study, Fungitel - Pending. -- outpatient pfts -- awaiting sputum cultures : No sputum cx was sent -- Patient is on 1 L of oxygen today #Esophageal thickening - as mentioned in CT - will need endoscopy once patient stabilizes -- She refused a EGD scope, Dr. Montes is willing to do it inpatient or outpatient #Acute Leukocytosis, present on admission, active - Vital signs: Temperature 98.2, respiratory rate 28, blood pressure 115/68, a oxygen is 92% on room air at admission - WBCs 16.1 at admission, trending down initially, trended up again today, could be associated with prednisone vs underlying infection getting worse as the antitbiotics were stopped as per ID recs - CXR showed:Diffuse, widespread bilateral interstitial and airspace opacities suggestive of pulmonary edema and/or diffuse bilateral inflammatory process - UA was negative for infection - was started on broad spectrum empiric antibiotic treatment with Levaquin, stopped as per ID recs, as no clear source of infection - peripheral smear ordered - MRI neck to look for abscess in parotid gland, patient refused MRI - MRSA negative -- Appears to be due to prednisone 60 mg daily Normal pressure hydrocephalus chronic active poa -- discussed case with Dr. Desouza presents the edition neurology -- Dr. Desouza recommends outpatient follow-up with neurology to see if she is a candidate for ventricular shunt -- Patient of course is really saying "I do not want any procedures done". # Anxiety +/- cognitive impairment - patient not consistent with her story, her behavior is suggestive of some cognitive impairment - this could be related to normal pressure hydrocephalus, however could not asses her gait to come to a conclusion, will get neuro consult - Psych saw the patient, rec: antianxiety meds with prozac 10mg daily, valium 2.5 BID, warning patient ahead of time before the test --Patient is refusing psychiatric medications 03/07 # Elevated troponin, Rule out coronary syndrome, present on admission, resolved - Troponin was elevated at 0.126 - Likely secondary to demand ischemia - Continuous cardiac monitoring with remote telemetry. - EKG showed: Sinus rhythm with a rate of 91, old anterior septal infarct, no ST segment elevation or depression, no T-wave abnormalities. - Heart healthy diet - Keep oxygen saturation greater than 94% - Lipid panel, hgbA1c - Ordered TTE complete as previously stated # acute CHF of unk type, echo normal ruled out - Patient was placed on a water pill by her PCP. She has not been compliant on her outpatient water pill given that it makes her void too frequently. Patient states that she underwent some sort of cardiac test with Dr. Juan Weaver As an outpatient several months ago. - proBNP 795.1, Albumin level 2.2 - Physical exam significant for bilateral crackles lung bases to mid lung velasquez (likely 2/2 interstitial lung disease), bilateral lower extremity pitting edema involving the feet to level of the distal knee (chronic venous stasis?) - In the ED: Patient received 40 mg of IV Lasix. - Strict weights out of bed - ECHO - normal ejection fraction - cardiology consulted, recs: no signs of acute chf at this point, may need acs workup once patient more stable. # Bilateral eye infection, present on admission, improving - Cipro ophthalmic ointment bilaterally 3 times a day # Left Should Pain, status post falling out of bed, was on admission, active - The patient reported the ED physician that she has had left shoulder pain has persisted since she fell out of bed. - There was no upper extremity x-ray performed in the ED. And there was no further complaint of left shoulder pain during this physicians exam. #Anemia, normocytic hypochromic, chronicity unknown, present on admission, active - H/H8.7/27.6, MCV 89.0, MCH 28.1, MCHC 31.5. - Stool guaiac was negative - We will continue to monitor with serial CBC - Iron studies and ferritin, indicative for anemia of chronic disease, low tibc and low iron # Elevated creatine patient with unknown baseline. Present admission, active - Creatinine 1.06 > 1.19> 1.14>1.19 - Continue to monitor # Chronic venous stasis stable chronic - edema in legs - wrapped by wound care - wound care on consult, appreciate recs # Chronic back pain # History of asbestosis # Obesity # Anxiety Disposition: pending improvement, PT/OT eval CODE STATUS: Full code PCP: Juan Selby DVT PE prophylaxis: SCD's Contact: VTE Prophylaxis: Sub-Q Heparin (Unfractionated), SCDs Resuscitation Status: CPR: Attempt Resuscitation Time spent 25 min Emma Sullivan DO Mar 07, 2017 05:12
--- NOTE | 2017-03-07 15:07 | NUR ---
SNF choice list provided. SONJA Porter
--- NOTE | 2017-03-07 15:44 | NUR ---
oxygenation Pt was on 4L NC with Sp02 of 97%. Lowered to 2L pt sp02 93-95%. Turned off O2 and pt decreased to 85-87% on RA. Placed patient back on 1L and she maintained 90-93%.MD stahl
--- NOTE | 2017-03-07 15:47 | NUR ---
medication refusal Pt refused morning Prozac and Valium. pt stated that she did not like the way they made her feel. MD stahl
--- NOTE | 2017-03-07 16:30 | NUR ---
spiritual care: follow up conversational visit; pt explained she had "taken a turn for the worse" and indicated o-2 needs. 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 Pt shared her goals of relocating to the [facility] in [place] with where she hopes to join a large [place] community. Pt awaiting medical news and progress.
--- NOTE | 2017-03-07 19:45 | PROG NOTE ---
[address] [address] PROGRESS NOTE PATIENT: JIMBO HAQUE : 1955 MR#: [id number] ADMIT: 03/04/2017 JOB ID: [id number] DATE: 03/07/2017 REASON FOR FOLLOWUP: Possible infection. INTERVAL HISTORY: Recall this is a patient I saw on TuesdayMarch 04. At that time, she had leukocytosis but not much evidence of infection. A chest x-ray showed worsening interstitial infiltrates due to probably progressive interstitial lung disease she has had for multiple years. Her antibiotics were stopped on Tuesday or Tuesday and she has not received antibiotics over the weekend. She was seen by Pulmonary and they felt she had interstitial lung disease but not asbestosis which corresponded to my impression. She was started on high-dose prednisone. Today, she reports no fevers, chills, or sweats. Minimal dry cough but she does have exertional shortness of breath. She states she is much improved since admission. PHYSICAL EXAM: She is afebrile, temp 36.6, pulse 85, respiratory rate 20, blood pressure 131/78, saturating well on 4 L. She is in no distress. She is much more awake and lucid than she was on March 04. Oral cavity negative. Lungs with diffuse crackles without change. Cardiac tones: Distant without new murmur. The remainder of the exam is unremarkable. LABORATORIES: Include white count up to 20,000 undoubtedly due to the initiation of steroids. Creatinine 1.19. Procalcitonin less than 0.25 on three successive measurements. QuantiFERON Gold, Fungitell pending. KORINA screen negative. Rheumatoid factor pending. Micro includes negative blood cultures, negative MRSA screen, negative respiratory viral PCR panel. Chest CT was done over the weekend, and shows progressive interstitial lung disease more consistent with a nonspecific interstitial pneumonitis pattern. Abnormalities of the distal esophagus were also seen raising questions of scleroderma. IMPRESSION: I see no evidence for infection at this time. I remain a bit concerned about the leukocytosis she had when she came in, but she certainly does not look infected or toxic and the chest CT and physical findings do not much support a diagnosis of infection. The negative procalcitonins are reassuring as is her lack of progression off antibiotics. RECOMMENDATIONS: 1. No antibiotics today. 2. Will consider Bactrim prophylaxis if the plan is to continue her on high-dose steroids more than four weeks. 3. Will continue to follow with you and I plan to discuss this case with Dr. Sullivan this evening.
[2017-03-07 20:34] VITALS: BP 130/80; PULSE 75; RESP 18; O2SAT 93
[2017-03-08] MEDS: Heparin 5,000 Unit/mL Inj SUBQ SCH ×2 (00:06→08:09)
[2017-03-08] MEDS: Sodium Chloride LOK Flush 10 mL Syringe IVFLUSH SCH ×2 (00:19→08:08)
--- NOTE | 2017-03-08 04:46 | NUR ---
activity Pt alert and oriented to self, pleasant and cooperative, refused Ativan, said it doesn't work for her. Pt is anxious at times, eventually went to sleep.
[2017-03-08 05:32] VITALS: BP 132/87; PULSE 68; RESP 20; O2SAT 95
[2017-03-08] MEDS ORDERED: DIAZ5TAB PO ×2 (05:40→11:42)
[2017-03-08] MEDS ORDERED: FLUO10CA20 PO (05:40)
[2017-03-08] MEDS ORDERED: PRE10 PO (05:45)
[2017-03-08 06:00] LABS: BASOPHILS % (AUTO) 0.1 % (0-3); EOSINOPHILS % (AUTO) 0.2 % (0-5); MONOCYTES % (AUTO) 5.4 % (4-12); Mean Corpuscular Hemoglobin 27.7 pg (27.0-35.0); Mean Corpuscular Volume 90.2 fL (81-100); NEUTROPHILS % (AUTO) 80.3 % (40-74); Platelet Count 728 bil/L (150-400)
[2017-03-08] MEDS: Ciprofloxacin 0.3% 5 mL Ophthalmic Solution BOTH_EYES SCH (08:08)
[2017-03-08] MEDS ORDERED: predniSONE 20 mg Tablet PO SCH (08:30)
--- NOTE | 2017-03-08 08:37 | NUR ---
Social Work received a call from Alejandra from [facility] who states they would like Marizol to complete onsight of pt. DANIA informed Alejandra that this would be ok. Marizol to come see pt today. SONJA Porter
--- NOTE | 2017-03-08 08:48 | PROG NOTE ---
[address] [address] PROGRESS NOTE PATIENT: JIMBO HAQUE : 1955 MR#: [id number] ADMIT: 03/04/2017 JOB ID: [id number] DATE: 03/07/2017 PULMONARY FOLLOW UP NOTE: PROBLEM: Abnormal chest x-ray. SUBJECTIVE: The patient has a long history of apparently progressive reticular appearing pulmonary findings on x-ray and CT scan. Discussion with the patient suggests that has been evaluated in 2008. Diagnosis either not forthcoming, but in any case, she is not aware of the diagnosis. No treatment. However, the patient is declining a number of suggested studies here and I am not sure that treatment was offered or treatment declined, but in any case, she continues to have worsening mostly it sounds like weakness but hard to really define exactly what she is saying. Has been running O2 sats in the high 80s. Was put on oxygen at 2 L with good response by oximetry. However, the patient requested 4 L which increased her sats to the mid 90s. Currently on 1 L running sats of 92-93. On room air, O2 sat running about 88%. Has some cough. Apparently no phlegm. Patient anxious to go home. Discussed the dilemma with her weakness and ability to get care at home. She says she can stand up and wants to walk and then subsequently indicates she cannot lift her legs off the bed. OBJECTIVE: Temperature 36.6, pulse 85, respiratory rate 20, blood pressure 131/78. O2 sat on 4 L is 95. O2 sat on 2 L is 93. O2 sat on room air is 88%. General appearance: Frail. Moves very little. Chest: Decreased breath sounds though the patient is unable to take much of a deep breath. Chest shows diffuse crackles throughout both lung velasquez. Heart tones normal. Abdomen is soft. Extremities slightly erythematous. Muscle seems without much tone. When asked to do hyperextension of her feet, she is able to do it reasonably well though then states she is unable to lift her thigh up off the bed. Coached in breathing technique that would allow us to do spirometry. I think with some coaching and modifications of the spirometry technique we could get something suggestive of a reasonable study. However, apparently the spirometer is inoperable. ASSESSMENT: Progressive apparently interstitial lung disease. There is some vague history of exposure to asbestos. Sarcoid has been offered as a possible diagnostic possibility and she was started on 60 mg prednisone. I think I would like to wait a little bit with regard to the steroids, get serology as well as evaluation for fungal and mycobacterial disease and then reconsider the situation. This would likely be an outpatient workup in any other situation. Here in this case I am not sure how much we are going to accomplish without doing some of this as an inpatient. Unfortunately, we do not have a spirometer. She is claustrophobic and will not get into a plethysmography box. PLAN: 1. I think we can stop the prednisone. Do not know that it needs to be tapered. She has been only on it for a day or two. Might consider going to 40 for a day or two and then 20 for a day or two, and by that time, we should have some of our studies back. If we get some sputum, that might be helpful. However, our diagnostic evaluation is somewhat thwarted by the patient's refusal of a number of studies. Has somewhat of a pearly skin lesion on her left pretibial area. Discussed biopsy for possible cutaneous involvement with sarcoid that might be helpful in our evaluation. However, the patient refuses biopsy without even a discussion of the procedure. PLAN: 1. We would like to see the prednisone off. Maybe consider 60 for two days, 40 for two days, 20 for two days and then off. Of course, she has had it so short I really do not think she needs to be tapered. 2. Will see about obtaining a spirometer. 3. Serology for the various interstitial pneumonitides. 4. 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 5. Physical therapy evaluation and formulation of the program to help with strengthening and hopefully ultimately ambulation.
--- NOTE | 2017-03-08 10:16 | NUR ---
Social Work-multidisciplinary rounds: Per MD in morning pt is likely medically stable for discharge at this time.PT continues to recommend SNF. SW awaiting for [facility] to complete onsight of pt. SW will continue to follow. SONJA Porter
[2017-03-08] MEDS ORDERED: BENZ100C8 PO (11:42)
--- NOTE | 2017-03-08 11:47 | PROG NOTE ---
[address] [address] PROGRESS NOTE PATIENT: JIMBO HAQUE : 1955 MR#: [id number] ADMIT: 03/04/2017 JOB ID: [id number] DATE: 03/08/2017 INFECTIOUS DISEASE FOLLOW UP NOTE: REASON FOR FOLLOWUP: Leukocytosis of unknown etiology. INTERVAL HISTORY: Overnight, the patient has been feeling better. She denies significant shortness of breath or cough beyond her baseline. No fevers, chills, nausea, vomiting or diarrhea. She is eating quite well today. PHYSICAL EXAMINATION: Reveals an afebrile woman. Temperature 36.3, pulse 68, respiratory rate 20, blood pressure 132/87 saturating well on 1 L, no acute distress. Oral cavity unremarkable. Lungs with crackles and wheezes diffusely as before. She is on 1 L nasal oxygen as mentioned and saturating well. Abdomen soft and nontender. Her right foot is mildly erythematous as compared to the left and slightly warm perhaps but entirely nontender to palpation. It does not appear infected. Lower extremity edema improved but that is mainly due to the side effect of the calf compression devices to prevent DVT. LABORATORIES: Include a white count which has dropped back to 14,000, 80% segs but she has been on steroids. Creatinine 1.19. Procalcitonin x3 were all basically around 0.25 or a little less. Rheumatoid factor 387. QuantiFERON Gold is indeterminate and not useful because she could not respond to the mitogen. Labs include negative blood cultures. Negative MRSA screen. Negative respiratory PCR panel. No new imaging. IMPRESSION: Despite the patient's leukocytosis, which she was admitted with before steroids, I see no evidence for ongoing infection. She has severe underlying interstitial lung disease which is unlikely to be due to asbestosis. RECOMMENDATIONS: 1. Steroids as per the Pulmonary engagement quality consultant. 2. I see no indication for antibiotics unless she is maintained on long-term steroids greater than 20 mg a day of prednisone. 3. I have discussed this case by telephone with Dr. Sullivan and the patient is probably going home in the next day or two. 4. ID will go ahead and sign off on this patient at this time.
--- NOTE | 2017-03-08 11:56 | PCM.DIMED ---
Discharge Instructions Date of Service Mar 08, 2017 Dates of Hospitalization Mar 04, 2017 at 02:33 Discharge Diagnosis Discharge Diagnosis Normal Pressure Hydrocephalus, Elevated troponins due to worsened kidney function, Interstital Lung Disease, Enlarged Parotid, Leukocytosis, Anemia of Chronic Disease, Chronic venous stasis Medication Instructions Additional med instructions Please taper of prednisone as instructed Patient is started on prozac and valium during this admission. Diet Discharge Diet: Heart Healthy Activity Discharge Activity: Home Health Phyical Therapy Call your provider Call your provider for: Fever or Chills, Shortness of breath, Bleeding, Chest pain, Vomitting, Excessive diarrhea, Weakness (unilateral), Other Patient Instructions Patient Instructions Patient is needing 1L of oxygen to saturate fully at rest. Patient does not need foleycatheter.. Patient does not have any wound care requirements. Patient is requesting DVT Boots for her SNF stay. Patient needs PT/OT, notes from [facility] PT/OT: Assessment * Pt is a 62 y.o. female admitted for CHF exacerbation and increased troponin. 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 is primary caregiver and present throughout eval. and pt state provides assist with bed mobility, stand-pivot transfer bed to transport chair at home, and propels w/c. Pt extremely anxious, fearful and angry throughout session, repeating "I can't" to all requested tasks, although between max encouragement and distraction pt able to partially complete. Pt with significant bilateral LE, UE and trunk weakness, resistance to mobility and self-care, and HIGH fall risk during mobility given behaviours (retropulsion in resistance, but when cued could forward flex). Pt is not safe to discharge home with given inability to safely perform transfers, and basic bed mobility without 2 person assist. If pt refuses SNF, pt will need 2-person assist with transfers vs jackie lift, transport via cabulance. This PT strongly recommends SNF rehab daily x 4 weeks, with transition to [facility] for long-term increased care. Pt. and spouse present. Spouse requesting training on proper stand pivot transfer to w/c. Pt. is eager to strengthening LE and ambulation. Unrealistic of safety of current mobility level. Wanting to ambulate with B SPC. Pt. able to WB in LLE during t/f maxA stand pivot dependent over to w/c. REC further strength and mobility training. REC SNF via cabulance at this time. Patient is on heart healthy diet. Generic medications can be substituted. She does not have any communicable diseases. Follow-up plan Patient will need an outpatient neurology f/u for Normal Pressure Hydrocephalus , may try [facility]. She will need an o/p EGD to further evaluate her Esophagus. May follow up with Dr. Montes in 2-3 weeks. (She declined it as inpatient) She will need pulmonology f/u as outpatient for the interstitial lung disease. Recommend f/u in 4 weeks F/U with [facility] for psychiatric issues per Dr. Reina in one month. She will need o/p Rheumatology appointment in 4 weeks for concern for elevated Rheumatoid Factor, concern for scleroderma. If patient is experiencing parotid symptoms such as pain on R side, she should follow up with ENT via PCP. We request that the PCP monitors her for this. Follow up lab CBC in one week to check for normalization of WBC, H&H Emma Sullivan DO Mar 08, 2017 11:52
--- NOTE | 2017-03-08 12:05 | PCM.DC.MED ---
Discharge Summary Date of Service Mar 08, 2017 Dates of Hospitalization Date of Hospital Admission Mar 04, 2017 at 02:33 Date of Discharge: Mar 08, 2017 Providers: Admitting Physician: Renetta Yoo DO Primary Care Physician: Juan Weaver ND Attending Physician: Emma Cordero DO Diagnosis at Time of Discharge Diagnosis at Time of Discharge Normal Pressure Hydrocephalus, Elevated troponins due to worsened kidney function, Interstital Lung Disease, Enlarged Parotid, Leukocytosis, Anemia of Chronic Disease, Chronic venous stasis Consultations ID, Pulmonology, Cardiology, Psychiatry, Woundcare Procedures XRay, CTs & MRIs Chest CT WO Contrast perfromed 03/05/17 IMPRESSION: 1. Limited study due to motion artifact. 2. Progression of interstitial lung disease compared to the prior studies with characterization limited on the current study due to motion artifact and technique. The findings are not characteristic of a UIP pattern and are suggestive of an NSIP pattern. Followup evaluation may be obtained with a high- resolution CT for further characterization. 3. Concentric esophageal wall thickening with mildly patulous appearance of the distal esophagus. Given the associated presence of interstitial lung disease, the findings raise the possibility of scleroderma. Correlation is recommended clinically. The differential includes a nonspecific esophagitis or esophageal mass. Consider correlation with endoscopy. Dictated by: Luis Felipe Carter M.D. on 03/06/2017 at 10:57 CT Head IMPRESSION: 1. Ventricular enlargement greater than expected given the degree of generalized cerebral and cerebellar atrophy. Please correlate for clinical evidence of normal pressure hydrocephalus. 2. The right parotid gland is partially visualized and is larger and more lobulated than expected. Please correlate with clinical exam of the parotid. 3. There are no urgent discrepancies with the preliminary report. PROCEDURE: US RENAL SONOGRAM INDICATIONS: Cyst on CT TECHNIQUE: Real-time scanning was performed of the kidneys and bladder, with image documentation. COMPARISON: [facility], CT, CT CHEST WO CON, 03/06/2017, 8:50. FINDINGS: Kidneys: Right kidney measures 9.3 cm long; left kidney measures 11.0 cm long. Right renal cortical thickness is 1.1 cm; left renal cortical thickness is 1.5 cm. Renal cortical echotexture is normal. No hydronephrosis. There is a thin-walled anechoic exophytic cyst extending from the superior pole of the left kidney measuring up to 3.9 x 5.0 x 4.0 cm. No internal vascularity on color Doppler interrogation. Bladder: Pre-void bladder volume is 111 mL. Patient unable to void due to incontinence. No definite intraluminal masses or stones. Miscellaneous: No free pelvic fluid. IMPRESSION: 1. Simple cyst demonstrated in the left kidney. Dictated by: Luis Felipe Carter M.D. on 03/06/2017 at 21:17 Approved by: Luis Felipe Carter M.D. on 03/06/2017 at 21:24 Brief History Pulmonary Consultation Note Patient Juana Grady is a 62-year-old female with past medical history of interstitial lung disease and likely cerebral palsy who was brought to the ED by EMS after falling out of bed at home. The patient states that she has had chronic leg problems secondary to possible cerebral palsy versus scoliosis however states that her legs have become progressively weaker over the last 2 months leaving her virtually bedbound. 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 Two months ago, she tearfully reports that "my shook me" and since then has been confined to bed. When asked why she can't get out of bed, she states " my legs won't work" She is a never smoker. She reports that her "lung collapsed" in 1990 while giving to her youngest child. She did not require any invasive procedures however and she was released from the hospital after only 4 days. She complains of a chronic cough which began more than 10 years ago when she was living in [place]. It had improved after she moved to [place] but then returned and has persisted for the last 6-7 years. It has recently become productive over the last 3 weeks with yellow phlegm she describes as pus. Recently , her PCP prescribed a course of oral antibiotics but the cough and sputum persist. She denies any recognized exposures to TB and has not traveled outside of [place] for over 5 years. Despite several chest imaging studies over the years including a CT from October 2015 which showed advanced interstitial lung disease, she denies any prior evaluations by Pulmonary or being told of any chronic lung disease. There is a record in her chart of a Pulmonary consult in 2008 which she does not recall. She repeatedly denies any dyspnea. She denies any significant occupational exposures. 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 She does recall a single episode while working in [place] around 1994 when the building where her office was located in was undergoing renovation and there was asbestosis encountered. She denies exposure to fumes, silica, dusts, solvents in the workplace. She does not use either a sauna, hot tub, or heated indoor pool. She lives in a single family home with a basement on [place]. It is heated with electric radiant heat and has no central cooling. She has cats and one dog. She had birds but they have been gone from the home for many years. Approximately 10 years ago, her found mold covering a basement wall in an area where there had been a water leak. This was cleaned and the leak repaired and there is no evidence of any mold growth currently. She denies recent fevers, sweats, rigors, shortness of breath, chest pain, dysuria, headache, constipation, hematuria, hematochezia, melena, and involuntary weight loss. She does report nausea with vomiting within 30 minutes of all meals. Hospital Course This is 62-year-old female with history of anxiety, asbestosis exposure, and chronic lower extremity swelling who presented to the [facility] secondary to generalized weakness for the last 3-4 days. Patient had an elevated troponin of 0.126, leukocytosis of 16.1 with left shift, and symptoms and signs of CHF and physical exam and chest x-ray. Patient was admitted for broad spectrum antibiotic treatment, diuresis, and acute coronary syndrome rule out. #Hypoxemia due to worsening interstitial lung disease, improving - Chronic ILD , unknown source - repeat CT - worsening ILD from before, in NSIP pattern, concerns for sarcoidosis, esophageal thickening ? - pulmonology consulted, appreciate recs : -- Discussed case with Dr. abad from pulmonology, he does not believe prednisone is called for at this time. Recommends to taper. Cut the dose to 40 mg. Plan to take her to 20 for 2 days 10mg 2 days and then stop -- KORINA(negative), RF, Quatiferon Gold study, Fungitel - Pending. -- outpatient pfts -- awaiting sputum cultures : No sputum cx was sent -- Patient is on 1 L of oxygen at the time of discharge #Esophageal thickening - as mentioned in CT - will need endoscopy once patient stabilizes -- She refused a EGD scope, Dr. Montes is willing to do it inpatient or outpatient -- She can schedule an EGD as outpatient with Dr. Montes if she changes her mind. #Acute Leukocytosis, present on admission, active - Vital signs: Temperature 98.2, respiratory rate 28, blood pressure 115/68, a oxygen is 92% on room air at admission - WBCs 16.1 at admission, trending down initially, trended up again today, could be associated with prednisone vs underlying infection getting worse as the antitbiotics were stopped as per ID recs - CXR showed:Diffuse, widespread bilateral interstitial and airspace opacities suggestive of pulmonary edema and/or diffuse bilateral inflammatory process - UA was negative for infection - was started on broad spectrum empiric antibiotic treatment with Levaquin, stopped as per ID recs, as no clear source of infection - MRI neck to look for abscess in parotid gland, patient refused MRI - MRSA negative --Appears to be due to prednisone --CBC F/U lab in one week after discharge is recommended Normal pressure hydrocephalus chronic active poa -- discussed case with Dr. Desouza presents the edition neurology -- Dr. Desouza recommends outpatient follow-up with neurology to see if she is a candidate for ventricular shunt -- Patient of course is really saying "I do not want any procedures done". # Anxiety +/- cognitive impairment - patient not consistent with her story, her behavior is suggestive of some cognitive impairment - this could be related to normal pressure hydrocephalus, however could not asses her gait to come to a conclusion - Psych saw the patient, rec: antianxiety meds with prozac 10mg daily, valium 2.5 BID, warning patient ahead of time before the test --Patient is refusing psychiatric medications 03/07 -- She agrees to give them a try at the time of discharge. # Elevated troponin, Rule out coronary syndrome, present on admission, resolved - Troponin was elevated at 0.126 - Likely secondary to demand ischemia - Continuous cardiac monitoring with remote telemetry. - EKG showed: Sinus rhythm with a rate of 91, old anterior septal infarct, no ST segment elevation or depression, no T-wave abnormalities. - Heart healthy diet - Keep oxygen saturation greater than 94% - Lipid panel ([place] CHOL 137 LDL 80 TG 170 HDL 23) , hgbA1c(6.1) - Ordered TTE complete as previously stated " Small left ventricular cavity with borderline left ventricular hypertophy and normal systolic function (EF 65-70%). 2) Small right ventricular cavity with normal function. Age related calcificaiton of the aortic valve but no hemodynamically significant stenosis or reugurgitation are present, No prior Echo available for comparison. " -- We recommend that PCP discusses moderate intensity statin initiation with patient. She refused/declined many medications and procedures here. # acute CHF of unk type, echo normal ruled out - Patient was placed on a water pill by her PCP. She has not been compliant on her outpatient water pill given that it makes her void too frequently. Patient states that she underwent some sort of cardiac test with Dr. Juan Weaver As an outpatient several months ago. - proBNP 795.1, Albumin level 2.2 - Physical exam significant for bilateral crackles lung bases to mid lung velasquez (likely 2/2 interstitial lung disease), bilateral lower extremity pitting edema involving the feet to level of the distal knee (chronic venous stasis?) - In the ED: Patient received 40 mg of IV Lasix. - Strict weights out of bed - ECHO - normal ejection fraction - cardiology consulted, recs: no signs of acute chf at this point, may need acs workup once patient more stable. # Bilateral eye infection, present on admission, improving - Cipro ophthalmic ointment bilaterally 3 times a day # Left Should Pain, status post falling out of bed, was on admission, active - The patient reported the ED physician that she has had left shoulder pain has persisted since she fell out of bed. - There was no upper extremity x-ray performed in the ED. And there was no further complaint of left shoulder pain during this physicians exam. #Anemia, normocytic hypochromic, chronicity unknown, present on admission, active - H/H8.7/27.6, MCV 89.0, MCH 28.1, MCHC 31.5. - Stool guaiac was negative - We will continue to monitor with serial CBC - Iron studies and ferritin, indicative for anemia of chronic disease, low tibc and low iron -- Started her on iron supplement, Miralax # Elevated creatine patient with unknown baseline. Present admission, active - Creatinine 1.06 > 1.19> 1.14>1.19 - Patient's baseline seems to be 1.14 to 1.19. --We request that PCP f/u in 1-2 weeks with BMP to make sure there is no further worsening. # Chronic venous stasis stable chronic - edema in legs - wrapped by wound care - wound care on consult, appreciate recs # Chronic back pain # History of asbestosis # Obesity # Anxiety Disposition: pending improvement, PT/OT eval CODE STATUS: Full code PCP: Juan Selby DVT PE prophylaxis: SCD's Contact: Exam Vital Signs (Last) Date Time Temp Pulse Resp B/P Pulse Ox O2 Delivery O2 Flow Rate FiO2 03/08/17 08:20 Supplement Oxygen 03/08/17 05:32 36.3 68 20 132/87 95 1.00 Exam Gen.: Sitting up in bed. pale HEENT: Normocephalic, atraumatic Heart: Regular rate and rhythm no S3-S4 murmurs Lungs: Crackles fine posteriorly in the lower lobes, no wheezing Abdomen: Nontender nondistended normal bowel sounds Extremities: Negative for edema Musculoskeletal: Patient refuses to lift her lower extremities again is to gravity. She is able to do resistance testing and over the feet Psych: Positive for anxiety, poor insight Neuro: She was perseverating a lot, short-term memory loss Test 03/03/17 23:59 03/04/17 00:00 03/04/17 00:05 03/04/17 01:10 Total Bilirubin 0.2mg/dL (0.0-1.2) Aspartate Amino Transf (AST/SGOT) 23U/L (0-50) Alanine Aminotransferase (ALT/SGPT) 9U/L (0-32) Alkaline Phosphatase 120U/L (25-165) Pro-B-Type Natriuretic Peptide 795.1pg/mL (0-287) Total Protein 5.5g/dL (6.4-8.4) Albumin 2.2g/dL (3.4-5.0) Hemoglobin A1c 6.1% (4.8-5.6) Phosphorus Level 3.3mg/dL (2.5-4.9) Magnesium Level 1.6mg/dL (1.6-2.6) Triglycerides Level 170mg/dL (0-149) Cholesterol Level 137mg/dL (100-199) LDL Cholesterol, Calculated 80.000mg/dL (0-99) VLDL Cholesterol 34.000mg/dL HDL Cholesterol 23mg/dL (>39) Cholesterol/HDL Ratio 5.96 (0.0-4.4) Hold Mon Top Tube Received (Received) Urine Color Yellow (YELLOW) Urine Appearance Clear (CLEAR,HAZY) Urine pH 6.5 (5.0-8.0) Urine Specific [place] 1.010 (1.003-1.035) Urine Protein Negativemg/dL (NEG,TRACE) Urine Glucose (UA) Negativemg/dL (NEGATIVE) Urine Ketones Negativemg/dL (NEGATIVE) Urine Occult Blood Negative (NEGATIVE) Urine Nitrite Negative (NEGATIVE) Urine Bilirubin Negative (NEGATIVE) Urine Urobilinogen Normalmg/dL (NORMAL) Urine Leukocyte Esterase Negative (NEGATIVE) Urine RBC 0-2/hpf (0-2) Urine WBC 0-5/hpf (0-5) Urine Epithelial Cells Moderate/hpf (NONE-MOD) Urine Crystals Oxalic acid crystals (NONE Urine Bacteria Few/hpf (NONE-FEW) Urine Hyaline Casts None/lpf (NONE) Urine Granular Casts None seen (NONE SEEN) Urine Waxy Casts None seen (NONE SEEN) Urine Red Blood Cell Casts None seen (NONE SEEN) Urine White Blood Cell Casts None seen (NONE SEEN) Urine Mucus None seen (None Seen) Urine Trichomonas Nn (NONE SEEN) Urine Yeast None (NONE SEEN) Urinalysis Comment None Urine Culture Reflexed Not indicated Test 03/04/17 04:30 03/04/17 06:45 03/04/17 08:33 03/04/17 09:25 Activated Partial Thromboplast Time 103.8sec (22.8-33.0) Iron Level 30ug/dL (35-150) Total Iron Binding Capacity 178ug/dL (250-450) Percent Iron Saturation 17%sat (15-50) Unsaturated Iron Binding 148.4ug/dL Ferritin 98ng/mL (13-150) Lactic Acid Level 1.2mmol/L (0.4-2.0) Troponin T 0.124ug/L (0.0-0.011) Test 03/04/17 17:15 03/05/17 06:49 03/05/17 16:33 03/05/17 17:30 TB Test (QFT) Gold In Tube Indeterminate (Negative) TB Test (QFT) Incubation Comment (.) TB Test (QFT) Mitogen 0.09IU/mL (.) TB Test (QFT) Antigen 0.03IU/mL (.) TB Test (QFT) Antigen Minus Nil 0.01IU/mL (.) TB Test (QFT) TB - Nil 0.02IU/mL (.) TB Test (QFT) Positive Criteria Comment (.) TB Test (QFT) Interpretation Comment (.) Procalcitonin 0.24ng/mL (0.00-0.08) Erythrocyte Sedimentation Rate 51mm/hr (0-40) C-Reactive Protein 10.1mg/dL (0.0-0.5) Anti-Nuclear Antibody Screen Negative (Negative) Test 03/05/17 21:30 03/06/17 08:10 03/07/17 05:05 03/08/17 05:15 Rheumatoid Factor 387.0IU/mL (0.0-13.9) Band Neutrophils % 4% (1-5) Metamyelocytes % 1% (0-0) Sodium Level 135mEq/L (134-144) Potassium Level 4.1mEq/L (3.5-5.2) Chloride Level 95mEq/L (97-108) Carbon Dioxide Level 28mmol/L (18-29) Blood Urea Nitrogen 14mg/dL (8-27) Creatinine 1.19mg/dL (0.57-1.00) Estimat Glomerular Filtration Rate 65mL/min (>59) Glucose Level 120mg/dL (60-99) Calcium Level 9.0mg/dL (8.5-10.1) White Blood Count 14.5th/mm3 (3.8-10.1) Red Blood Count 2.96mil/mm3 (3.90-5.20) Hemoglobin 8.2g/dL (12.0-15.6) Hematocrit 26.7% (35.0-46.0) Mean Corpuscular Volume 90.2fL (81-100) Mean Corpuscular Hemoglobin 27.7pg (27.0-35.0) Mean Corpuscular Hemoglobin Concent 30.7% (32.0-37.0) Red Cell Distribution Width 16.2% (12.3-15.4) Platelet Count 728bil/L (150-400) Neutrophils (%) (Auto) 80.3% (40-74) Lymphocytes (%) (Auto) 9.9% (14-46) Monocytes (%) (Auto) 5.4% (4-12) Eosinophils (%) (Auto) 0.2% (0-5) Basophils (%) (Auto) 0.1% (0-3) Discharge Medications Discharge Medications Diazepam (Valium) 5 Mg Tablet 2.5 MG PO BID Prescribed by: EMMA CORDERO DO Ferrous Sulfate (Ferrous Sulfate) 325 Mg Tablet 325 MG PO BIDWM Prescribed by: EMMA CORDERO DO Fluoxetine (Fluoxetine) 10 Mg Capsule 10 MG PO DAILY Prescribed by: EMMA CORDERO DO Folic Acid (Folic Acid) 20 Mg Capsule 20 MG PO DAILY (Reported) Niacinamide (Niacin) 500 Mg Tablet 1,000 MG PO DAILY (Reported) Prednisone (PredniSONE) 10 Mg Tablet 10 MG PO DAILY Take 40 mg on day #1 (4 tab) Take 20 mg on day #2, #3 (2 tab each) Take 10 mg on day #4 and #5 (one tab each) Prescribed by: EMMA CORDERO DO Pyridoxine (Vitamin B-6) 50 Mg Tablet 100 MG PO DAILY (Reported) As needed Benzonatate (Benzonatate) 100 Mg Capsule 100 MG PO TID PRN PRN For Cough Prescribed by: EMMA CORDERO DO Additional med instructions Please taper of prednisone as instructed Patient is started on prozac and valium during this admission. Followup Plan Follow-up plan Patient will be seen by the attending at the SNF for f/u. Patient will need an outpatient neurology f/u for Normal Pressure Hydrocephalus , may try [facility]. She will need an o/p EGD to further evaluate her Esophagus. May follow up with Dr. Montes in 2-3 weeks. (She declined it as inpatient) She will need pulmonology f/u as outpatient for the interstitial lung disease. Recommend f/u in 4 weeks. F/U with [facility] for psychiatric issues per Dr. Reina in one month. She will need o/p Rheumatology appointment in 4 weeks for concern for elevated Rheumatoid Factor, concern for scleroderma. If patient is experiencing parotid symptoms such as pain on R side, she should follow up with ENT via PCP. We request that the PCP monitors her for this. Follow up lab CBC in one week to check for normalization of WBC, H&H Discharge Diet: Heart Healthy Discharge Activity: Home Health Phyical Therapy Patient Instructions Patient is needing 1L of oxygen to saturate fully at rest. Patient does not need foleycatheter.. Patient does not have any wound care requirements. Patient is requesting [facility] for her SNF stay. Patient needs PT/OT, notes from [facility] PT/OT: Assessment * Pt is a 62 y.o. female admitted for CHF exacerbation and increased troponin. 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 is primary caregiver and present throughout eval. and pt state provides assist with bed mobility, stand-pivot transfer bed to transport chair at home, and propels w/c. Pt extremely anxious, fearful and angry throughout session, repeating "I can't" to all requested tasks, although between max encouragement and distraction pt able to partially complete. Pt with significant bilateral LE, UE and trunk weakness, resistance to mobility and self-care, and HIGH fall risk during mobility given behaviours (retropulsion in resistance, but when cued could forward flex). Pt is not safe to discharge home with given inability to safely perform transfers, and basic bed mobility without 2 person assist. If pt refuses SNF, pt will need 2-person assist with transfers vs jackie lift, transport via cabulance. This PT strongly recommends SNF rehab daily x 4 weeks, with transition to [facility] for long-term increased care. Pt. and spouse present. Spouse requesting training on proper stand pivot transfer to w/c. Pt. is eager to strengthening LE and ambulation. Unrealistic of safety of current mobility level. Wanting to ambulate with B SPC. Pt. able to WB in LLE during t/f maxA stand pivot dependent over to w/c. REC further strength and mobility training. REC SNF via cabulance at this time. Patient is on heart healthy diet. Generic medications can be substituted. She does not have any communicable diseases. Time spent 40 min Emma Cordero DO Mar 08, 2017 12:05
[2017-03-08] MEDS ORDERED: FERR-83 PO (12:20)
--- NOTE | 2017-03-08 12:20 | NUR ---
[facility] can accept with Dr. Pritchett to follow. SONJA Porter
--- NOTE | 2017-03-08 12:31 | NUR ---
Social Work-discharge: Data:EMR reviewed. Pt is on day 4 of hospitalization for acute exacerbation per H&P. Pt is medically stable for discharge today. DANIA confirmed with Alejandra from [facility] that they are able to accept pt today. DANIA created packet and faxed orders. DANIA confirmed Alejandra has received them. Psychiatry has seen pt and recommended outpt services, Mental health resources provided. [facility] has arranged transport for 1400 with O2 and pt's own w/c. DANIA updated pt and , both agreeable. DANIA left a message with APS worker Kemal [phone] informing him of discharge. RN, UC,pt/family, and [facility] all updated and agreeable to plan. Assessment:pt to benefit from SNF. Plan:Pt to discharge to [facility] today via w.c van at 1400. RN, UC,pt/family, and [facility] all updated and agreeable to plan. Lucy Mayes MSW
[2017-03-08 13:14] VITALS: BP 126/76; PULSE 73; RESP 20; O2SAT 93
--- NOTE | 2017-03-08 14:16 | NUR ---
Discharge Pt discharged with transportation service to [facility] on 1L [place]. Report given to Abhishek. Refusal of Q2 turns and certain medications given as well as patient LE skin condition and incontinency issues. IV removed. no s/s of distress at time of dc
--- NOTE | 2017-03-08 14:38 | DRSVH ---
PROCEDURE: X-RAY CHEST ONE VIEW, PORTABLE ([id number]) INDICATIONS: increased cough TECHNIQUE: One view of the chest was acquired. COMPARISON: Merged With [facility], CR, XR CHEST 1VW (PORTABLE), 03/03/2017, 23:19. FINDINGS: Surgical changes and devices: None. Lungs and pleura: Lung volumes are low. There is diffuse interstitial prominence superimposed on reti cular radiopacities. No focal pulmonary radiopacities. Mediastinum: Mediastinal contours appear normal. Heart size is large, as before. Bones and chest wall: No suspicious bony lesions. Overlying soft tissues appear unremarkable. IMPRESSION: 1. Findings suspicious for pulmonary edema superimposed on fibrotic or emphysematous change. Dictated by: Kathy Siegel M.D. on 03/08/2017 at 14:35 Approved by: Kathy Siegel M.D. on 03/08/2017 at 14:36
== END 2017-03-08 14:10 | DRG 197 ==
LOC: SED 23:00 → MPC 03-04 02:33
PROVIDERS: ADMIT Internal Medicine; ATTEND Internal Medicine
DX: J84.9 Interstitial pulmonary disease, unspecified (principal); I24.8 Other forms of acute ischemic heart disease; H44.003 Unspecified purulent endophthalmitis, bilateral; G91.2 (Idiopathic) normal pressure hydrocephalus; J98.9 Respiratory disorder, unspecified; Z91.81 History of falling; Z82.49 Family history of ischemic heart disease and other diseases of the circulatory system; M25.512 Pain in left shoulder; D72.829 Elevated white blood cell count, unspecified; F41.9 Anxiety disorder, unspecified; I87.8 Other specified disorders of veins; F41.1 Generalized anxiety disorder; F32.89 Other specified depressive episodes; R09.02 Hypoxemia